=== PATIENT | male | born 1985 | race Caucasian/White ===

== ENCOUNTER 2018-05-22 00:41 | Emergency (ER) | payer OTHER ==
--- OUTSIDE RECORDS SUMMARY | 2018-05-22 00:43 | XMS REPORT | Clinical Summary ---
:1985 Author Organization [facility] Address [address] [place] [address] Care Team Providers Name Role Phone Asked, No Pcp Primary Care Provider Unavailable Allergies No Known Allergies Current Medications Prescription Sig. Disp. Refills Start Date End Date Status ibuprofen Take TID for 21 tablet 0 12/25/2017 Active (ADVIL,MOTRIN) 800 MG three days then tablet TID prn acetaminophen-codeine Take 1-2 tablets 15 tablet 0 12/25/2017 12/28/2017 (TYLENOL WITH CODEINE by mouth every 6 #3) 300-30 mg per (six) hours as tablet needed for moderate pain for up to 3 days. Active Problems Not on file Encounters Date Type Specialty Care Team Description 12/25/2017 Emergency Emergency Medicine Bernard Toney MD Contusion of left chest wall, initial encounter (Primary Dx) after 05/21/2017 Social History Tobacco Use Types Packs/Day Years Used Date Never Smoker Smokeless Tobacco: Never Used Alcohol Use Drinks/Week oz/Week Comments No Sex Assigned at Date Recorded Not on file Last Filed Vital Signs Vital Sign Reading Time Taken Blood Pressure 110/74 12/25/2017 6:07 PM CDT Pulse 80 12/25/2017 6:07 PM CDT Temperature 36.6 C (97.9 F) 12/25/2017 6:07 PM CDT Respiratory Rate 16 12/25/2017 6:07 PM CDT Oxygen Saturation 100% 12/25/2017 6:07 PM CDT Inhaled Oxygen Concentration - - Weight - - Height 180.3 cm (5' 11") 12/25/2017 3:55 PM CDT Body Mass Index - - Plan of Treatment Health Maintenance Due Date Last Done Comments INFLUENZA VACCINE 05/11/2018 Procedures Procedure Name Priority Date/Time Associated Diagnosis Comments XR CHEST 2 VW STAT 12/25/2017 5:05 PM Results for this CDT procedure are in the results section. after 05/21/2017 Results XR Chest 2 Vw (12/25/2017 5:05 PM) Narrative Performed At Examination: Chest 2 views [facility] CLINICAL HISTORY: Chest Pain, major traumatic injury COMPARISON: None. FINDINGS: The heart is normal in size. Mediastinum is within normal limits. Skeletal structures are unremarkable. IMPRESSION: There is hyperinflation with small nodular cystic areas in the apices of both lungs due to emphysema. The pleural surfaces are otherwise smooth. No pneumothorax. No active infiltrates. [id number] Procedure Note Hm Interface, Radiology Results Incoming - 12/25/2017 5:15 PM CDT Examination: Chest 2 views CLINICAL HISTORY: Chest Pain, major traumatic injury COMPARISON: None. FINDINGS: The heart is normal in size. Mediastinum is within normal limits. Skeletal structures are unremarkable. IMPRESSION: There is hyperinflation with small nodular cystic areas in the apices of both lungs due to emphysema. The pleural surfaces are otherwise smooth. No pneumothorax. No active infiltrates. [id number] Performing Organization Address City/State/Zipcode Phone Number [facility] [address] [place] [address] after 05/21/2017 Insurance Payer Benefit Plan / Group Subscriber ID Type Phone Address AETNA AETNA HMO,POS,EPO, MC/EC xxxxxxxxxx HMO [phone] [address]
[2018-05-22] MEDS ORDERED: TETANUS & DIPHTHERIA TOX,ADULT 0.5 ML VIAL ONE (00:57)
[2018-05-22] MEDS ORDERED: LIDOCAINE 1% MPF 5 ML VIAL ONE (01:13)
[2018-05-22] MEDS ORDERED: BUPIVACAINE 0.5% PF 10 ML VIAL ONE (01:13)
[2018-05-22] MEDS ORDERED: ONDANSETRON 4 MG/2 ML VIAL ONE (01:22)
[2018-05-22] MEDS ORDERED: MORPHINE 4 MG/ML SYR ONE (01:22)
[2018-05-22] MEDS ORDERED: DOXYCYCLINE 100 MG CAP PO ONE (01:38)
--- NOTE | 2018-05-22 01:40 | EDPHYS ---
Physician Documentation [facility] Name: Zohaib Talamantes Age: 32 yrs Sex: Male : 1985 Arrival Date: 05/22/2018 Time: 00:43 Bed 18 Private MD: ED Physician Darnell Moreno HPI: 05/22 00:48 This 32 yrs old Male presents to ER via Ambulatory with complaints of Stab cp Wound, Laceration To Hand. 00:48 The patient or guardian reports injury, a laceration, dirty, pain. cp 00:48 The complaints affect the dorsal side web space between right thumb and index finger. cp Context: resulted from slip and fall while holding knife on deck. Onset: The symptoms/episode began/occurred just prior to arrival. Associated signs and symptoms: Pertinent negatives: cyanosis distally, decreased sensation distally, numbness distally, tingling distally. Historical: - Allergies: 00:49 Toradol; bp - Home Meds: 00:49 None [Active]; bp - PMHx: 00:49 None; bp - Immunization history:: Adult Immunizations up to date, Last tetanus immunization: up to date < 5 years ago. - Social history:: Smoking status: Patient uses tobacco products, denies chronic smoking, but will smoke occasionally, Patient uses alcohol, occasionally. - Ebola Screening: : Patient negative for fever greater than or equal to 101.5 degrees Fahrenheit, and additional compatible Ebola Virus Disease symptoms Patient denies exposure to infectious person Patient denies travel to an Ebola-affected area in the 21 days before illness onset No symptoms or risks identified at this time. ROS: 00:55 Constitutional: Negative for body aches, chills, fever, poor PO intake. cp 00:55 Eyes: Negative for injury, pain, redness, and discharge. cp 00:55 Respiratory: Negative for cough, shortness of breath, wheezing. 00:55 Abdomen/GI: Negative for abdominal pain, nausea, vomiting, and diarrhea. 00:55 Skin: Positive for puncture, of the dorsum right hand web space between index finger and thumb. 00:55 Neuro: Negative for numbness, weakness. 00:55 All other systems are negative. Exam: 01:05 Constitutional: The patient appears in no acute distress, alert, awake, well developed, cp well nourished, uncomfortable. 01:05 Head/Face: Normocephalic, atraumatic. cp 01:05 Eyes: Periorbital structures: appear normal, Conjunctiva: normal, no exudate, no injection, Lids and lashes: appear normal, bilaterally. 01:05 ENT: External ear(s): are unremarkable, Nose: is normal, Mouth: Lips: moist, Oral mucosa: moist, Posterior pharynx: is normal, airway is patent. 01:05 Neck: ROM/movement: is normal, is supple, without pain, no range of motions limitations. 01:05 Chest/axilla: Exam negative for signs of trauma. 01:05 Cardiovascular: Rate: tachycardic. 01:05 Respiratory: the patient does not display signs of respiratory distress, Respirations: normal, no use of accessory muscles, no retractions, no splinting, no tachypnea. 01:05 Abdomen/GI: Exam negative for discomfort, distension, guarding. 01:05 Musculoskeletal/extremity: ROM: full active range of motion, in the right hand, Perfusion: the extremity is normally perfused throughout, Sensation intact. Tendon exam: specific tendon testing normal through active and passive range of motion 01:05 Skin: injury, laceration(s), the wound is approximately 1 cm(s), of the dorsal web space of right thumb and index finger, the second wound is approximately 1 cm(s), that can be described as contaminated, no foreign body, with mild bleeding. Vital Signs: 00:49 BP 128 / 93; Pulse 100; Resp 24; Temp 99.1; Pulse Ox 100% ; Weight 63.05 kg; Height 5 bp ft. 11 in. (180.34 cm); 01:50 BP 123 / 88; Pulse 92; Resp 16; Pulse Ox 98% ; Pain 0/10; ao 02:40 BP 124 / 87; Pulse 88; Resp 18; Pulse Ox 98% on R/A; Pain 0/10; ao 03:18 BP 123 / 82; Pulse 82; Resp 16; Pulse Ox 99% on R/A; ao 00:49 Body Mass Index 19.39 (63.05 kg, 180.34 cm) bp MDM: 00:46 Patient medically screened. cp 01:00 Differential diagnosis: open fracture, tendon injury, puncture wound. cp 01:38 Data reviewed: vital signs, nurses notes, radiologic studies, plain films. cp 01:38 Test interpretation: by ED physician or midlevel provider: plain radiologic studies. cp Counseling: I had a detailed discussion with the patient and/or guardian regarding: the historical points, exam findings, and any diagnostic results supporting the discharge/admit diagnosis, radiology results, the need for outpatient follow up, a family practitioner, to return to the emergency department if symptoms worsen or persist or if there are any questions or concerns that arise at home. Response to treatment: the patient's symptoms have markedly improved after treatment, and as a result, I will discharge patient. Special discussion: I discussed in detail with the patient the higher chance of wound infection based on his presenting history. 05/22 00:48 Order name: XRAY Hand RIGHT 3 View cp 05/22 00:48 Order name: Wound Care: soak in betadine and normal saline; Complete Time: 01:10 cp 05/22 00:52 Order name: IV; Complete Time: 01:28 cp 05/22 01:09 Order name: Prolene, Sutures; Complete Time: :28 cp 05/22 01:09 Order name: Dressing - Wound; Complete Time: 01:10 cp 05/22 01:09 Order name: Gloves, Sterile; Complete Time: 01:10 cp 05/22 01:09 Order name: Setup Suture Tray; Complete Time: 01:10 cp 05/22 01:36 Order name: Wound dressing; Complete Time: 02:18 cp 05/22 01:37 Order name: Splint: aluminum volar splint; Complete Time: 02:18 cp Administered Medications: 01:10 Drug: Zofran 4 mg Route: IVP; Site: left antecubital; ao 01:45 Follow up: Response: No adverse reaction ao 01:12 Not Given (Patient Refused): Tetanus-Diphtheria Toxoid Adult 0.5 ml IM once ao 01:27 Drug: Lidocaine (1 %) 5 mg {Note: By Say Lira, PA.} Route: Infiltration; ao 01:45 Follow up: Response: No adverse reaction ao 01:27 Drug: Marcaine (0.5 %) 5 ml {Note: By Say Lira, PA.} Volume: 10 ml; Route: ao Infiltration; :45 Follow up: Response: No adverse reaction ao 01:28 Drug: morphine 2 mg Route: IVP; Site: left antecubital; ao 01:45 Follow up: Response: No adverse reaction ao 01:44 Drug: Doxycycline 100 mg Route: PO; ao 01:45 Follow up: Response: No adverse reaction ao Disposition: 05/22/18 01:39 Discharged to Home. Impression: Laceration without foreign body of right hand - Dorsal web space of thumb and index finger. - Condition is Stable. - Discharge Instructions: Laceration Care, Adult. - Prescriptions for Doxycycline Hyclate 100 mg Oral Tablet - take 1 tablet by ORAL route every 12 hours; 20 tablet. Tramadol 50 mg Oral Tablet - take 1 tablet by ORAL route every 8 hours as needed; 12 tablet. - Medication Reconciliation Form, Thank You Letter, Antibiotic Education, Prescription Opioid Use form. - Follow up: Private Physician; When: 48 Hours; Reason: Wound Recheck. - Problem is new. - Symptoms have improved. Addendum: 05/23/2018 04:44 Co-signature as Attending Physician, Darnell Moreno MD. g s Signatures: Dispatcher [employer] EDMS Marquez Lira PA PA cp Ortiz, Alex, RN RN Darnell John MD MD gs Peltier, Brian, RN RN bp Corrections: (The following items were deleted from the chart) 08 01:36 01:36 Splint ordered. cp cp 03:20 01:39 05/22/2018 01:39 Discharged to Home. Impression: Laceration without foreign body ao of right hand - Dorsal web space of thumb and index finger. Condition is Stable. Forms are Medication Reconciliation Form, Thank You Letter, Antibiotic Education, Prescription Opioid Use. Follow up: Private Physician; When: 48 Hours; Reason: Wound Recheck. Problem is new. Symptoms have improved. cp
--- NOTE | 2018-05-22 01:40 | ER ---
Nurse's Notes [facility] Name: Zohaib Talamantes Age: 32 yrs Sex: Male : 1985 Arrival Date: 05/22/2018 Time: 00:43 Bed 18 Private MD: Diagnosis: Laceration without foreign body of right hand-Dorsal web space of thumb and index finger Presentation: 05/22 00:48 Presenting complaint: Patient states: I WAS ON THE DOCK AND FELL HOLDING MY KNIFE AND bp CUT MY HAND. Transition of care: patient was not received from another setting of care. Onset of symptoms was May 22, 2018 at 00:00. Risk Assessment: Do you want to hurt yourself or someone else? Patient reports no desire to harm self or others. Initial Sepsis Screen: Does the patient meet any 2 criteria? No. Patient's initial sepsis screen is negative. Does the patient have a suspected source of infection? No. Patient's initial sepsis screen is negative. Care prior to arrival: None. 00:48 Method Of Arrival: Ambulatory bp 00:48 Acuity: TOREY 3 bp Triage Assessment: 00:49 General: Appears distressed, uncomfortable, slender, Behavior is cooperative, bp appropriate for age, anxious. Pain: Complains of pain in Right first web space. Historical: - Allergies: 00:49 Toradol; bp - Home Meds: 00:49 None [Active]; bp - PMHx: 00:49 None; bp - Immunization history:: Adult Immunizations up to date, Last tetanus immunization: up to date < 5 years ago. - Social history:: Smoking status: Patient uses tobacco products, denies chronic smoking, but will smoke occasionally, Patient uses alcohol, occasionally. - Ebola Screening: : Patient negative for fever greater than or equal to 101.5 degrees Fahrenheit, and additional compatible Ebola Virus Disease symptoms Patient denies exposure to infectious person Patient denies travel to an Ebola-affected area in the 21 days before illness onset No symptoms or risks identified at this time. Screenin:51 Abuse screen: Denies threats or abuse. Denies injuries from another. Nutritional bp screening: No deficits noted. Tuberculosis screening: No symptoms or risk factors identified. Fall Risk None identified. Assessment: 00:51 General: Appears distressed, uncomfortable, slender, Behavior is cooperative, bp appropriate for age, anxious. Pain: Complains of pain in Right first web space. Neuro: Level of Consciousness is awake, alert, obeys commands, Oriented to person, place, time, situation, Appropriate for age. Cardiovascular: No deficits noted. Respiratory: Airway is patent Respiratory effort is even, unlabored, Respiratory pattern is regular, symmetrical. GI: No signs and/or symptoms were reported involving the gastrointestinal system. : No signs and/or symptoms were reported regarding the genitourinary system. EENT: No deficits noted. Derm: No signs and/or symptoms reported regarding the dermatologic system. Musculoskeletal: Circulation, motion, and sensation intact. Range of motion: intact in all extremities. Injury Description: Laceration sustained to Right first web space is clean, full thickness, 2.6 to 7.5 cm long, bleeding moderately. 01:40 Reassessment: Patient appears in no apparent distress at this time. Patient and/or ao family updated on plan of care and expected duration. Pain level reassessed. Patient is alert, oriented x 3, equal unlabored respirations, skin warm/dry/pink. Clean incision with Hibiclens and NS. Patient asked for pain medication. Say Lira was notified. 02:21 Reassessment: Patient appears in no apparent distress at this time. Patient and/or ao family updated on plan of care and expected duration. Pain level reassessed. Patient is alert, oriented x 3, equal unlabored respirations, skin warm/dry/pink. Patient to be discharge. Medicated with Morphine and patient had some alcohol on board. 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 03:18 Reassessment: DC instructions given to mother and patient. Mother agree to drive ao patient home. Patient agree with the POC and to follow up with PCP. No questions at this time. Vital Signs: 00:49 BP 128 / 93; Pulse 100; Resp 24; Temp 99.1; Pulse Ox 100% ; Weight 63.05 kg; Height 5 bp ft. 11 in. (180.34 cm); 01:50 BP 123 / 88; Pulse 92; Resp 16; Pulse Ox 98% ; Pain 0/10; ao 02:40 BP 124 / 87; Pulse 88; Resp 18; Pulse Ox 98% on R/A; Pain 0/10; ao 03:18 BP 123 / 82; Pulse 82; Resp 16; Pulse Ox 99% on R/A; ao 00:49 Body Mass Index 19.39 (63.05 kg, 180.34 cm) bp ED Course: 00:43 Patient arrived in ED. es 00:44 Marquez Lira PA is PHCP. cp 00:44 Darnell Moreno MD is Attending Physician. cp 00:48 Triage completed. bp 00:49 Arm band placed on. bp 00:50 Mickey Oliveira, RN is Primary Nurse. ao 00:51 Patient has correct armband on for positive identification. Bed in low position. Call bp light in reach. Side rails up X2. 01:04 XRAY Hand RIGHT 3 View In Process Unspecified. EDMS 03:20 No provider procedures requiring assistance completed. IV discontinued, intact, ao bleeding controlled, No redness/swelling at site. Pressure dressing applied. Administered Medications: 01:10 Drug: Zofran 4 mg Route: IVP; Site: left antecubital; ao 01:45 Follow up: Response: No adverse reaction ao 01:12 Not Given (Patient Refused): Tetanus-Diphtheria Toxoid Adult 0.5 ml IM once ao 01:27 Drug: Lidocaine (1 %) 5 mg {Note: By LÁZARO Mccormick.} Route: Infiltration; ao 01:45 Follow up: Response: No adverse reaction ao 01:27 Drug: Marcaine (0.5 %) 5 ml {Note: By LÁZARO Mccormick.} Volume: 10 ml; Route: ao Infiltration; 01:45 Follow up: Response: No adverse reaction ao 01:28 Drug: morphine 2 mg Route: IVP; Site: left antecubital; ao 01:45 Follow up: Response: No adverse reaction ao 01:44 Drug: Doxycycline 100 mg Route: PO; ao 01:45 Follow up: Response: No adverse reaction ao Outcome: 01:39 Discharge ordered by . cp 03:20 Discharged to home ambulatory, with family. 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 Demonstrated understanding of instructions, follow-up care, medications, Prescriptions given X 2. 03:20 Patient left the ED. ao Signatures: Dispatcher [employer] EDKY Dora Castillo Corey, PA PA cp Ortiz, Alex, RN RN ao Sun, Clint, RN RN bp Corrections: (The following items were deleted from the chart) 03:20 01:50 BP 124 / 87; Pulse 88bpm; Resp 18bpm; Pulse Ox 98% RA; Pain 0/10; ao ao
--- NOTE | 2018-05-22 08:38 | RAD REPORT ---
EXAM DESCRIPTION: RAD - Hand Right 3 View - 05/22/2018 1:04 am CLINICAL HISTORY: Fall, laceration between the first and second finger COMPARISON: None. FINDINGS: No fracture is identified. There is no dislocation or periosteal reaction noted. No forei gn body or other soft tissue abnormality. Curvature of the fourth and fifth metacarpals could be the sequela of a remote fracture and remodeled. IMPRESSION: No foreign body. No acute bone finding.
== END 2018-05-22 03:20 | disposition home or self-care (01) ==
LOC: ER 00:41
DX: S61.411A Laceration without foreign body of right hand, initial encounter (principal); W26.0XXA Contact with knife, initial encounter; Y93.89 Activity, other specified; Y92.814 Boat as the place of occurrence of the external cause; Z88.5 Allergy status to narcotic agent; Z72.0 Tobacco use
CPT/HCPCS: 90714; 96374; 96375; 99283; J2405

== ENCOUNTER 2018-07-10 18:09 | Emergency (ER) | payer OTHER ==
--- OUTSIDE RECORDS SUMMARY | 2018-07-10 18:12 | XMS REPORT | Clinical Summary ---
:1985 Author Organization [facility] Address [address] [place] [address] Care Team Providers Name Role Phone Asked, [...] chest wall, initial encounter (Primary Dx) after 07/09/2017 Social History Tobacco Use Types Packs/Day Years [...] procedure are in the results section. after 07/09/2017 Results XR Chest 2 Vw (12/25/2017 5:05 [...] otherwise smooth. No pneumothorax. No active infiltrates. [id number] Procedure Note Hm Interface, Radiology Results Incoming [...] otherwise smooth. No pneumothorax. No active infiltrates. [id number] Performing Organization Address City/State/Zipcode Phone Number [facility] [address] [place] [address] after 07/09/2017 Insurance Payer Benefit Plan / Group Subscriber ID Type Phone Address AETNA AETNA HMO,POS,EPO, MC/EC xxxxxxxxxx HMO [phone] [address]
--- NOTE | 2018-07-10 19:12 | RAD REPORT ---
EXAM DESCRIPTION: CT - C Spine Wo Con - 07/10/2018 7:01 pm CLINICAL HISTORY: after lifting washing machine;Pain Neck injury COMPARISON: <Comparisons> FINDINGS: The cervical vertebral body heights and disc spaces are maintained. No evidence of acute cervical spine fracture or subluxation. Prevertebral soft tissues are normal in thickness. Emphysematous changes in the upper lung tong. IMPRESSION: Negative for acute cervical spine abnormality. All CT scans are performed using dose optimization technique as appropriate and may include automated exposure control or mA/KV adjustment according to patient size.
[2018-07-10] MEDS ORDERED: IBUPROFEN 400 MG TAB ONE (19:15)
--- NOTE | 2018-07-10 19:34 | EDPHYS ---
Physician Documentation [facility] Name: Zohaib Talamantes Age: 32 yrs Sex: Male : 1985 Arrival Date: 07/10/2018 Time: 18:12 Bed 5 Private MD: None, None ED Physician Darnell Moreno HPI: 07/10 18:35 This 32 yrs old Male presents to ER via Ambulatory with complaints of Stiff cp Neck. 18:35 The patient or guardian complains of decreased range of motion, an injury, pain, that cp is acute, tenderness. The symptoms are located on the left posterior lower neck. Onset: The symptoms/episode began/occurred suddenly, today. Context: The neck injury/problem resulted from attempting to lift washing machine. Associated signs and symptoms: Pertinent negatives: fever, numbness, tingling, weakness. Historical: - Allergies: 18:20 Toradol; sg - Home Meds: 18:20 None [Active]; sg - PMHx: 18:20 None; sg - PSHx: 18:20 None; sg - Immunization history:: Adult Immunizations not up to date. - Social history:: Smoking status: Patient/guardian denies using tobacco. - Ebola Screening: : Patient negative for fever greater than or equal to 101.5 degrees Fahrenheit, and additional compatible Ebola Virus Disease symptoms Patient denies exposure to infectious person Patient denies travel to an Ebola-affected area in the 21 days before illness onset No symptoms or risks identified at this time. ROS: 18:45 Constitutional: Negative for body aches, chills, fever, poor PO intake. cp 18:45 Eyes: Negative for injury, pain, redness, and discharge. cp 18:45 ENT: Negative for drainage from ear(s), ear pain, sore throat, difficulty swallowing, difficulty handling secretions. 18:45 Neck: Positive for pain with movement, pain at rest, stiffness, tenderness. 18:45 Cardiovascular: Negative for chest pain, edema, palpitations. 18:45 Respiratory: Negative for cough, shortness of breath, wheezing. 18:45 Abdomen/GI: Negative for abdominal pain, nausea, vomiting, and diarrhea, black/tarry stool, rectal bleeding. 18:45 Back: Negative for decreased range of motion, pain at rest, pain with movement. 18:45 : Negative for urinary symptoms. 18:45 Skin: Negative for cellulitis, rash. 18:45 Neuro: Negative for altered mental status, headache, numbness, tingling, weakness. 18:45 All other systems are negative. Exam: 18:50 Constitutional: The patient appears in no acute distress, alert, awake, non-toxic, well cp developed, well nourished, uncomfortable. 18:50 Head/Face: Normocephalic, atraumatic. cp 18:50 Eyes: Periorbital structures: appear normal, Pupils: equal, round, and reactive to light and accomodation, Extraocular movements: intact throughout, Conjunctiva: normal, no exudate, no injection, Sclera: no appreciated abnormality, Lids and lashes: appear normal, bilaterally. 18:50 ENT: External ear(s): are unremarkable, Ear canal(s): are normal, clear, TM's: bulging, is not appreciated, bilaterally, dullness, bilaterally, erythema, is not appreciated, bilaterally, Nose: is normal, Mouth: Lips: moist, Oral mucosa: moist, Posterior pharynx: is normal, airway is patent, no erythema, no exudate, Voice: is normal. 18:50 Neck: External neck: tenderness, that is moderate, of the left mid cervical area, left trapezius and lower cervical area, C-spine: C-collar placed in ED, crepitus, is not appreciated, ROM/movement: pain, that is moderate, with any movement, limited range of motion, that is moderate, in any direction. 18:50 Chest/axilla: Inspection: normal, Palpation: is normal, no crepitus, no tenderness. 18:50 Cardiovascular: Rate: normal, Rhythm: regular, Pulses: Pulses are 2+ in right radial artery and left radial artery. 18:50 Respiratory: the patient does not display signs of respiratory distress, Respirations: normal, no use of accessory muscles, no retractions, no splinting, no tachypnea, labored breathing, is not present, Breath sounds: are clear throughout, no decreased breath sounds, no stridor, no wheezing. 18:50 Abdomen/GI: Inspection: abdomen appears normal, Palpation: abdomen is soft and non-tender, in all quadrants. 18:50 Back: pain, is absent, ROM is normal. 18:50 Musculoskeletal/extremity: Exam is negative for decreased range of motion, edema. 18:50 Skin: cellulitis, is not appreciated, no rash present. 18:50 Neuro: Orientation: to person, place \T\ time. Mentation: lucid, able to follow commands, Cerebellar function: is grossly normal, Motor: moves all fours, strength is normal, Sensation: no obvious gross deficits, Deep tendon reflexes are 2+ (normal) in the right tricep, right bicep, right brachioradialis, left bicep, left tricep and left brachioradialis. Vital Signs: 18:30 BP 133 / 80; Pulse 92; Resp 17; Temp 97.7; Pulse Ox 99% on R/A; sg 18:50 BP 131 / 78; Pulse 89; Resp 16; Pulse Ox 97% on R/A; aj MDM: 18:25 Patient medically screened. cp 19:00 Differential diagnosis: C-Spine Fracture Cervical Disc Herniation Cervical Raiculopathy cp cervical strain, Spinal Cord Compression Spondylolisthesis subluxation, torticollis. 19:33 Data reviewed: vital signs, nurses notes, radiologic studies, CT scan. cp 19:33 Counseling: I had a detailed discussion with the patient and/or guardian regarding: the cp historical points, exam findings, and any diagnostic results supporting the discharge/admit diagnosis, radiology results, the need for outpatient follow up, a family practitioner, to return to the emergency department if symptoms worsen or persist or if there are any questions or concerns that arise at home. Response to treatment: the patient's symptoms have mildly improved after treatment, and as a result, I will discharge patient. 07/10 18:33 Order name: CT C Spine; Complete Time: 19:21 cp 07/10 19:21 Interpretation: Report reviewed. cp Administered Medications: 19:10 Drug: Motrin 800 mg Route: PO; aj 19:54 Follow up: Response: No adverse reaction aj Disposition: 07/10/18 19:33 Discharged to Home. Impression: Strain of muscle, fascia and tendon at neck level. - Condition is Stable. - Discharge Instructions: Muscle Strain, Heat Therapy. - Prescriptions for Anaprox DS 550 mg Oral Tablet - take 1 tablet by ORAL route every 12 hours As needed; 20 tablet. Baclofen 10 mg Oral Tablet - take 1 tablet by ORAL route 3 times per day no driving while taking medication; 20 tablet. Tramadol 50 mg Oral Tablet - take 1 tablet by ORAL route every 8 hours as needed; 15 tablet. - Medication Reconciliation Form, Thank You Letter, Antibiotic Education, Prescription Opioid Use form. - Follow up: Private Physician; When: 2 - 3 days; Reason: Recheck today's complaints. - Problem is new. - Symptoms have improved. Addendum: 07/18/2018 16:39 Co-signature as Attending Physician, Darnell Moreno MD. g s Signatures: Dispatcher [employer] EDMS Lionel Medina RN Lucinda Sultana RN RN Marquez Lucero PA PA cp Darnell Moreno MD MD Corrections: (The following items were deleted from the chart) 07/10 19:55 19:33 07/10/2018 19:33 Discharged to Home. Impression: Strain of muscle, fascia and aj tendon at neck level. Condition is Stable. Forms are Medication Reconciliation Form, Thank You Letter, Antibiotic Education, Prescription Opioid Use. Follow up: Private Physician; When: 2 - 3 days; Reason: Recheck today's complaints. Problem is new. Symptoms have improved. cp
--- NOTE | 2018-07-10 19:34 | ER ---
Nurse's Notes [facility] Name: Zohaib Talamantes Age: 32 yrs Sex: Male : 1985 Arrival Date: 07/10/2018 Time: 18:12 Bed 5 Private MD: None, None Diagnosis: Strain of muscle, fascia and tendon at neck level Presentation: 07/10 18:22 Presenting complaint: Patient states: My neck has just been really painful and stiff sg today, it started early today when i was trying to lift the washing machine, we have been moving furniture because we are moving out. Transition of care: patient was not received from another setting of care. Onset of symptoms was July 10, 2018. Risk Assessment: Do you want to hurt yourself or someone else? Patient reports no desire to harm self or others. Care prior to arrival: None. 18:22 Method Of Arrival: Ambulatory sg 18:22 Acuity: TOREY 4 sg 19:55 Initial Sepsis Screen: Does the patient meet any 2 criteria? No. Patient's initial aj sepsis screen is negative. Does the patient have a suspected source of infection? No. Patient's initial sepsis screen is negative. Historical: - Allergies: 18:20 Toradol; sg - Home Meds: 18:20 None [Active]; sg - PMHx: 18:20 None; sg - PSHx: 18:20 None; sg - Immunization history:: Adult Immunizations not up to date. - Social history:: Smoking status: Patient/guardian denies using tobacco. - Ebola Screening: : Patient negative for fever greater than or equal to 101.5 degrees Fahrenheit, and additional compatible Ebola Virus Disease symptoms Patient denies exposure to infectious person Patient denies travel to an Ebola-affected area in the 21 days before illness onset No symptoms or risks identified at this time. Screenin:50 Abuse screen: Denies threats or abuse. Denies injuries from another. Nutritional aj screening: No deficits noted. Tuberculosis screening: No symptoms or risk factors identified. Fall Risk None identified. Assessment: 18:50 General: Appears in no apparent distress. comfortable, Behavior is calm, cooperative, aj appropriate for age. 18:50 Pain: Complains of pain in back of neck and posterior chest. Neuro: Level of aj Consciousness is awake, alert, obeys commands, Oriented to person, place, time, situation, Appropriate for age. Respiratory: Airway is patent Respiratory effort is even, unlabored, Respiratory pattern is regular, symmetrical. Derm: Skin is intact, is healthy with good turgor, Skin is pink, warm \T\ dry. normal. Musculoskeletal: Reports pain in back of neck and posterior chest. Vital Signs: 18:30 BP 133 / 80; Pulse 92; Resp 17; Temp 97.7; Pulse Ox 99% on R/A; sg 18:50 BP 131 / 78; Pulse 89; Resp 16; Pulse Ox 97% on R/A; aj ED Course: 18:12 Patient arrived in ED. mr 18:12 None, None is Private Physician. mr 18:20 Arm band placed on. sg 18:22 Triage completed. sg 18:25 Marquez Lira PA is PHCP. cp 18:25 Darnell Moreno MD is Attending Physician. cp 18:40 Lucinda Lee, RN is Primary Nurse. aj 18:50 Patient has correct armband on for positive identification. aj 18:50 No provider procedures requiring assistance completed. Patient did not have IV access aj during this emergency room visit. 19:01 CT C Spine In Process Unspecified. EDMS Administered Medications: 19:10 Drug: Motrin 800 mg Route: PO; aj 19:54 Follow up: Response: No adverse reaction aj Outcome: 18:50 Discharged to home ambulatory. aj 18:50 Condition: good 18:50 Discharge instructions given to patient, Instructed on discharge instructions, follow up and referral plans. medication usage, Demonstrated understanding of instructions, follow-up care, medications, Prescriptions given X 3. 19:33 Discharge ordered by MD. cp 19:55 Patient left the ED. aj Signatures: Dispatcher [employer] EDMS Lionel Medina RN RN sg Myers, Amanda RN RN Nicolette Hwang mr Marquez Lira PA PA cp Corrections: (The following items were deleted from the chart) 18:29 18:22 Presenting complaint: Patient states: My neck has just been really painful and sg stiff today, it started yesterday sometime sg 18:29 18:22 Acuity: TOREY 3 sg sg
== END 2018-07-10 19:55 | disposition home or self-care (01) ==
LOC: ER 18:09
DX: S16.1XXA Strain of muscle, fascia and tendon at neck level, initial encounter (principal); X50.0XXA Overexertion from strenuous movement or load, initial encounter; Y93.89 Activity, other specified; Y92.9 Unspecified place or not applicable; Z88.5 Allergy status to narcotic agent
CPT/HCPCS: 72125; 99283

== ENCOUNTER 2018-07-18 14:01 | Emergency (ER) | payer OTHER ==
--- OUTSIDE RECORDS SUMMARY | 2018-07-18 14:03 | XMS REPORT | Clinical Summary ---
:1985 Author Organization [facility] Address [address] [place] [address] Care Team Providers Name Role Phone Asked, [...] chest wall, initial encounter (Primary Dx) after 07/17/2017 Social History Tobacco Use Types Packs/Day Years [...] procedure are in the results section. after 07/17/2017 Results XR Chest 2 Vw (12/25/2017 5:05 [...] otherwise smooth. No pneumothorax. No active infiltrates. [id number] Procedure Note Hm Interface, Radiology Results Incoming [...] otherwise smooth. No pneumothorax. No active infiltrates. [id number] Performing Organization Address City/State/Zipcode Phone Number [facility] [address] [place] [address] after 07/17/2017 Insurance Payer Benefit Plan / Group Subscriber ID Type Phone Address AETNA AETNA HMO,POS,EPO, MC/EC xxxxxxxxxx HMO [phone] [address]
--- NOTE | 2018-07-18 15:06 | ER ---
Nurse's Notes [facility] Name: Zohaib Talamantes Age: 32 yrs Sex: Male : 1985 Arrival Date: 07/18/2018 Time: 14:05 Bed 27 Private MD: None, None Diagnosis: Sprain of ligaments of cervical spine Presentation: 07/18 14:08 Presenting complaint: Patient states: "I was seen here about 2 weeks ago and I am still aa5 having the neck pain". Pt states "I was lifting a washer and I felt something pull in my neck". Pt states "I am taking tramadol and it works pretty good but I can't move my head too far so I can't work". Pt states "I have a doctor's appointment for Wednesday". Transition of care: patient was not received from another setting of care. Onset of symptoms was June 2018. Risk Assessment: Do you want to hurt yourself or someone else? Patient reports no desire to harm self or others. Initial Sepsis Screen: Does the patient meet any 2 criteria? No. Patient's initial sepsis screen is negative. Does the patient have a suspected source of infection? No. Patient's initial sepsis screen is negative. Care prior to arrival: None. 14:08 Method Of Arrival: Ambulatory aa5 14:08 Acuity: TOREY 4 aa5 Historical: - Allergies: 14:11 Toradol; aa5 - PMHx: 14:11 None; aa5 - PSHx: 14:11 None; aa5 - Immunization history:: Adult Immunizations up to date. - Social history:: Smoking status: Patient uses tobacco products, smokes one-half pack cigarettes per day. - Ebola Screening: : No symptoms or risks identified at this time. Screenin:33 Abuse screen: Denies threats or abuse. Nutritional screening: No deficits noted. tl3 Tuberculosis screening: No symptoms or risk factors identified. Fall Risk None identified. Assessment: 14:33 General: Appears uncomfortable, slender, well groomed, well developed, well nourished, tl3 Behavior is calm, cooperative, appropriate for age. Pain: Complains of pain in neck. Neuro: Level of Consciousness is awake, alert, obeys commands, Oriented to person, place, time, situation, Appropriate for age. Cardiovascular: Patient's skin is warm and dry. Respiratory: Airway is patent Respiratory effort is even, unlabored, Respiratory pattern is regular, symmetrical. GI: No signs and/or symptoms were reported involving the gastrointestinal system. : No signs and/or symptoms were reported regarding the genitourinary system. EENT: No signs and/or symptoms were reported regarding the EENT system. Derm: No signs and/or symptoms reported regarding the dermatologic system. Musculoskeletal: Reports pain in neck pain. 15:25 Reassessment: Patient appears in no apparent distress at this time. No changes from tl3 previously documented assessment. Patient and/or family updated on plan of care and expected duration. Pain level reassessed. Patient is alert, oriented x 3, equal unlabored respirations, skin warm/dry/pink. Vital Signs: 14:11 BP 117 / 79; Pulse 79; Resp 16 S; Temp 98.5(O); Pulse Ox 99% on R/A; Weight 65.77 kg aa5 (R); Height 5 ft. 11 in. (180.34 cm) (R); Pain 9/10; 15:25 BP 120 / 80; Pulse 58; Resp 18; Pulse Ox 100% on R/A; tl3 14:11 Body Mass Index 20.22 (65.77 kg, 180.34 cm) aa5 ED Course: 14:05 Patient arrived in ED. mr 14:05 None, None is Private Physician. mr 14:10 Triage completed. aa5 14:10 Arm band placed on. aa5 14:14 Darnell Moreno MD is Attending Physician. 14:25 Janine Bermudez RN is Primary Nurse. tl3 14:33 Patient has correct armband on for positive identification. Bed in low position. tl3 14:33 No provider procedures requiring assistance completed. Patient did not have IV access tl3 during this emergency room visit. Administered Medications: No medications were administered Outcome: 15:05 Discharge ordered by . 15:25 Discharged to home ambulatory. tl3 15:25 Condition: good 15:25 Discharge instructions given to patient, Instructed on discharge instructions, follow up and referral plans. medication usage, Demonstrated understanding of instructions, follow-up care, medications. 15:26 Patient left the ED. tl3 Signatures: Nicolette Lopez mr ThakkarMontejoJade seo RN RN aa5 Darnell Moreno MD MD gs Lowrey, Tammy, RN RN tl3 Corrections: (The following items were deleted from the chart) 14:11 14:08 Presenting complaint: Patient states: "I was seen here about 2 weeks ago and I am aa5 still having the neck pain". Pt states "I was lifting a washer and I felt something pull in my neck". Pt states "I am taking tramadol and it works pretty good but I can't move my head too far". aa5
--- NOTE | 2018-07-18 15:06 | EDPHYS ---
Physician Documentation [facility] Name: Zohaib Talamantes Age: 32 yrs Sex: Male : 1985 Arrival Date: 07/18/2018 Time: 14:05 Bed 27 Private MD: None, None ED Physician Darnell Moreno HPI: 07/18 15:01 This 32 yrs old Male presents to ER via Ambulatory with complaints of Neck gs Problem. 15:01 The patient or guardian complains of an injury. Onset: The symptoms/episode gs began/occurred 1 week(s) ago. Associated signs and symptoms: Pertinent negatives: bladder incontinence, bowel incontinence, nausea, numbness, tingling, vomiting. Modifying factors: the symptoms are aggravated by movement. Severity of symptoms: At their worst the symptoms were moderate, in the emergency department the symptoms are unchanged. Historical: - Allergies: 14:11 Toradol; aa5 - PMHx: 14:11 None; aa5 - PSHx: 14:11 None; aa5 - Immunization history:: Adult Immunizations up to date. - Social history:: Smoking status: Patient uses tobacco products, smokes one-half pack cigarettes per day. - Ebola Screening: : No symptoms or risks identified at this time. ROS: 15:01 All other systems are negative. gs Exam: 15:01 Head/Face: Normocephalic, atraumatic. Eyes: Pupils equal round and reactive to light, gs extra-ocular motions intact. Lids and lashes normal. Conjunctiva and sclera are non-icteric and not injected. Cornea within normal limits. Periorbital areas with no swelling, redness, or edema. ENT: Nares patent. No nasal discharge, no septal abnormalities noted. Tympanic membranes are normal and external auditory canals are clear. Oropharynx with no redness, swelling, or masses, exudates, or evidence of obstruction, uvula midline. Mucous membranes moist. Chest/axilla: Normal chest wall appearance and motion. Nontender with no deformity. No lesions are appreciated. Cardiovascular: Regular rate and rhythm with a normal S1 and S2. No gallops, murmurs, or rubs. Normal PMI, no JVD. No pulse deficits. Respiratory: Lungs have equal breath sounds bilaterally, clear to auscultation and percussion. No rales, rhonchi or wheezes noted. No increased work of breathing, no retractions or nasal flaring. Abdomen/GI: Soft, non-tender, with normal bowel sounds. No distension or tympany. No guarding or rebound. No evidence of tenderness throughout. Back: No spinal tenderness. No costovertebral tenderness. Full range of motion. Skin: Warm, dry with normal turgor. Normal color with no rashes, no lesions, and no evidence of cellulitis. MS/ Extremity: Pulses equal, no cyanosis. Neurovascular intact. Full, normal range of motion. Neuro: Awake and alert, GCS 15, oriented to person, place, time, and situation. Cranial nerves II-XII grossly intact. Motor strength 5/5 in all extremities. Sensory grossly intact. Cerebellar exam normal. Normal gait. 15:01 Constitutional: The patient appears alert, awake. 15:01 Neck: External neck: tenderness, that is mild, of the left trapezius and right trapezius, ROM/movement: pain, that is mild. Vital Signs: 14:11 BP 117 / 79; Pulse 79; Resp 16 S; Temp 98.5(O); Pulse Ox 99% on R/A; Weight 65.77 kg aa5 (R); Height 5 ft. 11 in. (180.34 cm) (R); Pain 9/10; 15:25 BP 120 / 80; Pulse 58; Resp 18; Pulse Ox 100% on R/A; tl3 14:11 Body Mass Index 20.22 (65.77 kg, 180.34 cm) aa5 MDM: 14:37 Patient medically screened. gs 15:01 Differential diagnosis: Cervical Discogenic Pain cervical strain, Whiplash Injury. Data reviewed: vital signs, nurses notes. Response to treatment: There is no appreciated change of the patient's symptoms at this time, and as a result, I will discharge patient. Administered Medications: No medications were administered Disposition: 07/18/18 15:05 Discharged to Home. Impression: Sprain of ligaments of cervical spine. - Condition is Stable. - Discharge Instructions: Cervical Sprain. - Prescriptions for Tramadol 50 mg Oral Tablet - take 1 tablet by ORAL route every 8 hours as needed; 12 tablet. - Medication Reconciliation Form, Thank You Letter, Antibiotic Education, Prescription Opioid Use form. - Follow up: Private Physician; When: 2 - 3 days; Reason: Re-evaluation by your physician. Signatures: Jade Montejo, RN RN aa5 Darnell Moreno MD MD gs Janine Bermudez RN RN tl3 Corrections: (The following items were deleted from the chart) 15:26 15:05 07/18/2018 15:05 Discharged to Home. Impression: Sprain of ligaments of cervical tl3 spine. Condition is Stable. Forms are Medication Reconciliation Form, Thank You Letter, Antibiotic Education, Prescription Opioid Use. Follow up: Private Physician; When: 2 - 3 days; Reason: Re-evaluation by your physician. gs
== END 2018-07-18 15:26 | disposition home or self-care (01) ==
LOC: ER 14:01
DX: S13.4XXA Sprain of ligaments of cervical spine, initial encounter (principal); X58.XXXA Exposure to other specified factors, initial encounter; Y93.9 Activity, unspecified; Y92.9 Unspecified place or not applicable; Z88.5 Allergy status to narcotic agent; F17.210 Nicotine dependence, cigarettes, uncomplicated
CPT/HCPCS: 99281

== ENCOUNTER 2018-11-29 20:48 | Emergency (ER) | payer OTHER, SELFPAY ==
--- OUTSIDE RECORDS SUMMARY | 2018-11-29 20:51 | XMS REPORT | Clinical Summary ---
:1985 Author Organization [facility] [employer] Address [address] [place] [address] Care Team Providers Name Role Phone Asked, No Pcp Primary Care Provider Unavailable Allergies No Known Allergies Medications Medication Sig Dispensed Refills Start Date End Date Status ibuprofen Take TID for 21 tablet 0 12/25/2017 Active (ADVIL,MOTRIN) 800 three days then MG tablet TID prn acetaminophen-codein Take 1-2 tablets 15 tablet 0 12/25/2017 12/28/2017 e (TYLENOL WITH by mouth every 6 CODEINE #3) 300-30 (six) hours as mg per tablet needed for moderate pain for up to 3 days. Active Problems Not on file Encounters Date Type Specialty Care Team Description 12/25/2017 Emergency Emergency Medicine Bernard Toney MD Contusion of left chest wall, initial encounter (Primary Dx) after 11/28/2017 Social History Tobacco Use Types Packs/Day Years Used Date Never Smoker Smokeless Tobacco: Never Used Alcohol Use Drinks/Week oz/Week Comments No Sex Assigned at Date Recorded Not on file Job Start Date Occupation Industry Not on file Not on file Not on file Travel History Travel Start Travel End No recent travel history available. Last Filed Vital Signs Vital Sign Reading [...] procedure are in the results section. after 11/28/2017 Results XR Chest 2 Vw (12/25/2017 5:05 PM CDT) Narrative Performed At Examination: Chest 2 views [facility] CLINICAL HISTORY: Chest Pain, major traumatic injury COMPARISON: None. FINDINGS: The heart is normal in size. Mediastinum is within normal limits. Skeletal structures are unremarkable. IMPRESSION: There is hyperinflation with small nodular cystic areas in the apices of both lungs due to emphysema. The pleural surfaces are otherwise smooth. No pneumothorax. No active infiltrates. [id number] Procedure Note Interface, Radiology Results Incoming - 12/25/2017 5:15 [...] otherwise smooth. No pneumothorax. No active infiltrates. [id number] Performing Organization Address City/State/Zipcode Phone Number [facility] [phone] [place] [address] after 11/28/2017 Insurance Payer Benefit Plan / Group Subscriber ID Type Phone Address AETNA AETNA HMO,POS,EPO, MC/EC xxxxxxxxxx HMO Advance Directives Patient has advance care planning documents on file. For more information, please contact:[facility] [id number] [place] [address]
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
--- NOTE | 2018-11-29 21:37 | ER ---
Nurse's Notes [facility] Name: Zohaib Talamantes Age: 33 yrs Sex: Male : 1985 Arrival Date: 11/29/2018 Time: 20:51 Bed 4 Private MD: Diagnosis: Thrombosed external hemorrhoid Presentation: 11/29 21:12 Presenting complaint: Patient states: pain and Hemorid since yesterday. pt denies ak1 bleeding. pt last BM was 2 days RN EMERGENCY ROOM. pt denies constipation. Transition of care: patient was not received from another setting of care. Onset of symptoms is unknown. Risk Assessment: Do you want to hurt yourself or someone else? Patient reports no desire to harm self or others. Initial Sepsis Screen: Does the patient meet any 2 criteria? No. Patient's initial sepsis screen is negative. Does the patient have a suspected source of infection? No. Patient's initial sepsis screen is negative. Care prior to arrival: None. 21:12 Method Of Arrival: Ambulatory ak1 21:12 Acuity: TOREY 4 ak1 Triage Assessment: 21:14 General: Appears uncomfortable, Behavior is calm, cooperative. Pain: Complains of pain ak1 in gluteal cleft. EENT: No signs and/or symptoms were reported regarding the EENT system. Neuro: No deficits noted. Cardiovascular: No deficits noted. Respiratory: No deficits noted. GI: No signs and/or symptoms were reported involving the gastrointestinal system. : No signs and/or symptoms were reported regarding the genitourinary system. Derm: No signs and/or symptoms reported regarding the dermatologic system. Musculoskeletal: No signs and/or symptoms reported regarding the musculoskeletal system. Historical: - Allergies: 21:14 Toradol; ak1 - Home Meds: 21:14 None [Active]; ak1 - PMHx: 21:14 None; ak1 - PSHx: 21:14 None; ak1 - Immunization history:: Adult Immunizations unknown. - Social history:: Smoking status: Patient uses tobacco products, smokes one-half pack cigarettes per day. - Ebola Screening: : No symptoms or risks identified at this time. - Family history:: not pertinent. - Hospitalizations: : No recent hospitalization is reported. Screenin:15 Abuse screen: Denies threats or abuse. Denies injuries from another. Nutritional ak1 screening: No deficits noted. Tuberculosis screening: No symptoms or risk factors identified. Fall Risk None identified. Assessment: 21:45 General: Appears in no apparent distress. uncomfortable, slender, Behavior is calm, bb cooperative. Pain: Complains of pain in buttocks and gluteal cleft. Neuro: Level of Consciousness is awake, alert, obeys commands, Oriented to person, place, time, situation. Cardiovascular: No deficits noted. Respiratory: Respiratory effort is even, unlabored. GI: Reports pain to rectum and hemorrhoids. Derm: Skin is pink, warm \T\ dry. Musculoskeletal: Circulation, motion, and sensation intact. 21:47 Reassessment: pt verbalized understanding of and agrees to plan of care discharge bb instructions given pt ambulated with steady gait to exit accompanied by friend. Vital Signs: 21:12 BP 119 / 79; Pulse 60; Resp 16; Temp 98.2; Pulse Ox 98% on R/A; Weight 66.22 kg (R); ak1 Height 5 ft. 11 in. (180.34 cm) (R); Pain 9/10; 21:12 Body Mass Index 20.36 (66.22 kg, 180.34 cm) ak1 ED Course: 20:51 Patient arrived in ED. es 21:11 Jesenia Vazquez, RN is Primary Nurse. ak1 21:13 Triage completed. ak1 21:14 Arm band placed on Patient placed in an exam room, on a stretcher, Patient notified of ak1 wait time. 21:24 Stefan Cole MD is Attending Physician. rn 21:36 Randy Valenzuela MD is Referral Physician. rn 21:36 Henry Barnett MD is Referral Physician. rn 21:41 No provider procedures requiring assistance completed. Patient did not have IV access ak1 during this emergency room visit. 21:42 Patient has correct armband on for positive identification. Bed in low position. Call ak1 light in reach. Side rails up X 1. Pulse ox on. NIBP on. Administered Medications: No medications were administered Outcome: 21:37 Discharge ordered by . rn 21:41 Discharged to home ambulatory. ak1 21:41 Condition: good 21:47 Discharge instructions given to patient, Instructed on discharge instructions, follow bb up and referral plans. medication usage, Demonstrated understanding of instructions, follow-up care, medications, Prescriptions given X 2. 21:48 Patient left the ED. bb Signatures: Dora Castillo Brenda, RN RN bb Stefan Cole MD MD rn Krenek, Amber, RN RN ak1
--- NOTE | 2018-11-29 21:37 | EDPHYS ---
Physician Documentation [facility] Name: Zohaib Talamantes Age: 33 yrs Sex: Male : 1985 Arrival Date: 11/29/2018 Time: 20:51 Bed 4 Private MD: ED Physician Stefan Cole HPI: 11/29 21:34 This 33 yrs old Male presents to ER via Ambulatory with complaints of rn Hemorrhoids. 21:34 The patient presents to the emergency department with pain in the rectal area. Onset: rn The symptoms/episode began/occurred 2 day(s) ago. Modifying factors: The symptoms are alleviated by nothing, The symptoms are aggravated by bowel movement, sitting position. The patient has not experienced similar symptoms in the past. The patient has not recently seen a physician. Reports hemorrhoids, no bleeding, no fever, no diarrhea, reports strains a lot. . Historical: - Allergies: 21:14 Toradol; ak1 - Home Meds: 21:14 None [Active]; ak1 - PMHx: 21:14 None; ak1 - PSHx: 21:14 None; ak1 - Immunization history:: Adult Immunizations unknown. - Social history:: Smoking status: Patient uses tobacco products, smokes one-half pack cigarettes per day. - Ebola Screening: : No symptoms or risks identified at this time. - Family history:: not pertinent. - Hospitalizations: : No recent hospitalization is reported. ROS: 21:34 Constitutional: Negative for fever, chills, and weight loss, Abdomen/GI: Negative for rn abdominal pain, nausea, vomiting, diarrhea, and constipation, + hemorrhoids Exam: 21:34 Constitutional: This is a well developed, well nourished patient who is awake, alert, rn and in no acute distress. Abdomen/GI: soft, non-tender, + external hemorrhoid with small amount of thrombosis. Vital Signs: 21:12 BP 119 / 79; Pulse 60; Resp 16; Temp 98.2; Pulse Ox 98% on R/A; Weight 66.22 kg (R); ak1 Height 5 ft. 11 in. (180.34 cm) (R); Pain 9/10; 21:12 Body Mass Index 20.36 (66.22 kg, 180.34 cm) ak1 MDM: 21:24 Patient medically screened. rn 21:34 Differential diagnosis: hemorrhoids. Data reviewed: vital signs, nurses notes, and as a rn result, I will discharge patient. Counseling: I had a detailed discussion with the patient and/or guardian regarding: the historical points, exam findings, and any diagnostic results supporting the discharge/admit diagnosis, the need for outpatient follow up, to return to the emergency department if symptoms worsen or persist or if there are any questions or concerns that arise at home. Special discussion: I discussed with the patient/guardian in detail that at this point there is no indication for admission to the hospital. It is understood, however, that if the symptoms persist or worsen the patient needs to return immediately for re-evaluation. Based on the history and exam findings, there is no indication for further emergent testing or inpatient evaluation. I discussed with the patient/guardian the need to see the controlled area checker for further evaluation of the symptoms. I discussed with the patient/guardian the need to see the general surgeon for further evaluation of the symptoms. Administered Medications: No medications were administered Disposition: 11/29/18 21:37 Discharged to Home. Impression: Thrombosed external hemorrhoid. - Condition is Stable. - Discharge Instructions: Hemorrhoids, How to Take a Sitz Bath, Nonsurgical Procedures for Hemorrhoids. - Prescriptions for Anusol- HC 2.5 % Rectal Cream - Apply to affected area 1 application by TOPICAL route every 8 hours As needed; 30 gram. Tylenol- Codeine #3 300-30 mg Oral Tablet - take 2 tablet by ORAL route every 6 hours As needed; 15 tablet. - Medication Reconciliation Form, Thank You Letter, Antibiotic Education, Prescription Opioid Use form. - Follow up: Randy Valenzuela MD; When: Tomorrow; Reason: Recheck today's complaints, Re-evaluation by your physician. Follow up: Henry Barnett MD; When: Tomorrow; Reason: Recheck today's complaints, Re-evaluation by your physician. - Problem is new. - Symptoms are unchanged. Signatures: Lluvia Bowles RN RN Stefan Ureña MD MD rn Krenek, Amber, RN RN ak1 Corrections: (The following items were deleted from the chart) 21:48 21:37 11/29/2018 21:37 Discharged to Home. Impression: Thrombosed external hemorrhoid. bb Condition is Stable. Forms are Medication Reconciliation Form, Thank You Letter, Antibiotic Education, Prescription Opioid Use. Follow up: Randy Valenzuela; When: Tomorrow; Reason: Recheck today's complaints, Re-evaluation by your physician. Follow up: Henry Barnett; When: Tomorrow; Reason: Recheck today's complaints, Re-evaluation by your physician. Problem is new. Symptoms are unchanged. rn
== END 2018-11-29 21:48 | disposition home or self-care (01) ==
LOC: ER 20:48
DX: K64.5 Perianal venous thrombosis (principal); F17.210 Nicotine dependence, cigarettes, uncomplicated; Z88.6 Allergy status to analgesic agent
CPT/HCPCS: 99283

== ENCOUNTER 2018-12-04 21:22 | Emergency (ER) | payer SELFPAY ==
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
[2018-12-04 22:17] LABS: Absolute Lymphocytes (CBC) 3.1 K/uL (0.7-4.9); Absolute Monocytes 0.7 K/uL (0.1-1.3); Absolute Neutrophil 6.3 K/uL (1.8-8.0); Basophils % 0.4 % (0-1.3); Eosinophils % 2.6 % (0-4.4); MPV 7.8 fL (7.6-11.3); Monocytes % 6.7 % (3.3-12.3); RBC Red Blood Cell Count 3.96 M/uL (4.33-5.43)
[2018-12-04] MEDS ORDERED: HYDROCODONE/APAP 5/325 MG TAB ONE (22:19)
[2018-12-04 22:41] LABS: BUN Blood Urea Nitrogen 21 mg/dL (7-18); Bicarbonate 26 mmol/L (21-32); Glucose Level 141 mg/dL (74-106); Potassium 3.3 mmol/L (3.5-5.1); Sodium Level 141 mmol/L (136-145); Troponin (Emerg Dept Use Only) < 0.02 ng/mL (0.0-0.045)
--- NOTE | 2018-12-04 22:45 | ER ---
Nurse's Notes [facility] Name: Zohaib Talamantes Age: 33 yrs Sex: Male : 1985 Arrival Date: 12/04/2018 Time: 21:25 Bed 23 Private MD: Diagnosis: Chest pain, unspecified;Pleurisy Presentation: 12/04 21:43 Presenting complaint: Patient states: he is having intermittent chest pain x 2 days bb pain does not radiate pt states he has a little shortness of breath and is feeling fatigued and light headed as well. Transition of care: patient was not received from another setting of care. Onset of symptoms was December 03, 2018. Risk Assessment: Do you want to hurt yourself or someone else? Patient reports no desire to harm self or others. Initial Sepsis Screen: Does the patient meet any 2 criteria? No. Patient's initial sepsis screen is negative. Does the patient have a suspected source of infection? No. Patient's initial sepsis screen is negative. Care prior to arrival: None. 21:43 Method Of Arrival: Ambulatory bb 21:43 Acuity: TOREY 3 bb Historical: - Allergies: 21:45 Toradol; bb - Home Meds: 21:45 None [Active]; bb - PMHx: 21:45 hemorrhoids; irregular heart beat; bb - PSHx: 21:45 None; bb - Immunization history:: Adult Immunizations up to date. - Social history:: Smoking status: Patient uses tobacco products, smokes one-half pack cigarettes per day, Patient/guardian denies using alcohol, street drugs. - Ebola Screening: : No symptoms or risks identified at this time. - Family history:: not pertinent. - Hospitalizations: : No recent hospitalization is reported. Screenin:17 Abuse screen: Denies threats or abuse. Nutritional screening: No deficits noted. la1 Tuberculosis screening: No symptoms or risk factors identified. Fall Risk None identified. Assessment: 22:16 General: Appears in no apparent distress. Behavior is calm. Pain: Complains of pain in la1 anterior aspect of left upper chest Pain does not radiate. Pain currently is 5 out of 10 on a pain scale. Quality of pain is described as squeezing, Is intermittent. Neuro: Level of Consciousness is awake, alert, obeys commands, Oriented to person, place, time, situation. Cardiovascular: Heart tones S1 S2 present Capillary refill < 3 seconds Patient's skin is warm and dry. Rhythm is sinus rhythm. Respiratory: Airway is patent Respiratory effort is even, unlabored, Respiratory pattern is regular, symmetrical, Breath sounds are clear bilaterally. GI: No signs and/or symptoms were reported involving the gastrointestinal system. : No signs and/or symptoms were reported regarding the genitourinary system. Vital Signs: 21:45 BP 119 / 67; Pulse 63; Resp 16 S; Temp 97.9(O); Pulse Ox 99% on R/A; Weight 62.14 kg bb (R); Height 5 ft. 11 in. (180.34 cm) (R); Pain 7/10; 23:01 BP 110 / 67; Pulse 81; Resp 16; Pulse Ox 98% on R/A; la1 21:45 Body Mass Index 19.11 (62.14 kg, 180.34 cm) bb ED Course: 21:25 Patient arrived in ED. es 21:41 August Cheatham, RN is Primary Nurse. la1 21:45 Triage completed. bb 21:45 Arm band placed on Patient placed in an exam room, on a stretcher, on compliance monitor, bb on pulse oximetry. EKG completed in triage. Results shown to MD. Family accompanied patient. 21:53 Stefan Cole MD is Attending Physician. rn 22:10 Missed attempt(s): 20 gauge in right antecubital area. lt1 22:10 Initial lab(s) drawn, by me, sent to lab. lt1 22:17 Placed in gown. Bed in low position. Call light in reach. Pulse ox on. NIBP on. la1 22:41 XRAY Chest (1 view) In Process Unspecified. EDMS 23:00 No provider procedures requiring assistance completed. IV discontinued, intact, la1 bleeding controlled, No redness/swelling at site. Pressure dressing applied. Patient maintains SpO2 saturation greater than 95% on room air. Administered Medications: 22:15 Drug: [place] 5 mg-325 mg 1 tabs Route: PO; la1 Outcome: 22:44 Discharge ordered by . rn 23:00 Discharged to home ambulatory. la1 23:00 Condition: stable 23:00 Discharge instructions given to patient, Instructed on discharge instructions, follow up and referral plans. medication usage, Demonstrated understanding of instructions, follow-up care. 23:01 Patient left the ED. la1 Signatures: Dispatcher [employer] Dora Ornelas Brenda, RN RN bb Nieto, Roman, MD MD rn Attema, Lee, RN RN la1 Tran, Leah Angela
--- NOTE | 2018-12-04 22:45 | EDPHYS ---
Physician Documentation [facility] Name: Zohaib Talamantes Age: 33 yrs Sex: Male : 1985 Arrival Date: 12/04/2018 Time: 21:25 Bed 23 Private MD: ED Physician Stefan Cole HPI: 12/04 22:23 This 33 yrs old Male presents to ER via Ambulatory with complaints of Chest rn Pain. 22:23 The patient or guardian reports chest pain that is located primarily in the anterior rn chest wall, left. The pain does not radiate. Associated signs and symptoms: Pertinent negatives: abdominal pain, cough, diaphoresis, lightheadedness, near syncope, palpitations, recent travel, shortness of breath, syncope, vomiting. The chest pain is described as sharp, squeezing. Duration: The patient or guardian reports multiple episodes, that are intermittent, the episodes last approximately 5 minute(s). Modifying factors: The symptoms are alleviated by nothing. the symptoms are aggravated by nothing. Severity of pain: At its worst the pain was mild in the emergency department the pain is unchanged. The patient has not experienced similar symptoms in the past. 22:24 Reports 2 days of left sided chest pain, non-radiating, reports smokes, no sob, no rn fever, no trauma, no hemoptysis, denies famhx of early cardiac problems. . Historical: - Allergies: 21:45 Toradol; bb - Home Meds: 21:45 None [Active]; bb - PMHx: 21:45 hemorrhoids; irregular heart beat; bb - PSHx: 21:45 None; bb - Immunization history:: Adult Immunizations up to date. - Social history:: Smoking status: Patient uses tobacco products, smokes one-half pack cigarettes per day, Patient/guardian denies using alcohol, street drugs. - Ebola Screening: : No symptoms or risks identified at this time. - Family history:: not pertinent. - Hospitalizations: : No recent hospitalization is reported. ROS: 22:24 Constitutional: Negative for fever, chills, and weight loss, Eyes: Negative for injury, rn pain, redness, and discharge, Cardiovascular: Negative for palpitations, and edema, Respiratory: Negative for shortness of breath, cough, wheezing Abdomen/GI: Negative for abdominal pain, nausea, vomiting, diarrhea, and constipation, MS/Extremity: Negative for injury and deformity, Skin: Negative for injury, rash, and discoloration, Neuro: Negative for headache, weakness, numbness, tingling, and seizure. Exam: 22:24 Constitutional: This is a well developed, well nourished patient who is awake, alert, rn appears anxious Head/Face: Normocephalic, atraumatic. Eyes: Pupils equal round and reactive to light, extra-ocular motions intact. Lids and lashes normal. Conjunctiva and sclera are non-icteric and not injected. Cornea within normal limits. Periorbital areas with no swelling, redness, or edema. ENT: MMM Neck: Trachea midline, no thyromegaly or masses palpated, and no cervical lymphadenopathy. Supple, full range of motion without nuchal rigidity, or vertebral point tenderness. No Meningismus. Cardiovascular: Regular rate and rhythm with a normal S1 and S2. No gallops, murmurs, or rubs.No JVD. No pulse deficits. Respiratory: Lungs have equal breath sounds bilaterally, clear to auscultation Abdomen/GI: soft, non-tender Skin: Warm, dry with normal turgor. Normal color with no rashes, no lesions, and no evidence of cellulitis. MS/ Extremity: Pulses equal, no cyanosis. Neurovascular intact. Full, normal range of motion. Equal circumference. Neuro: Awake and alert, GCS 15, oriented to person, place, time, and situation. Cranial nerves II-XII grossly intact. Motor strength 5/5 in all extremities. Sensory grossly intact. Cerebellar exam normal. Vital Signs: 21:45 BP 119 / 67; Pulse 63; Resp 16 S; Temp 97.9(O); Pulse Ox 99% on R/A; Weight 62.14 kg bb (R); Height 5 ft. 11 in. (180.34 cm) (R); Pain 7/10; 23:01 BP 110 / 67; Pulse 81; Resp 16; Pulse Ox 98% on R/A; la1 21:45 Body Mass Index 19.11 (62.14 kg, 180.34 cm) bb MDM: 21:53 Patient medically screened. rn 22:44 Differential diagnosis: acute pericarditis, anxiety, chest wall pain, costochondritis, rn esophagitis, gastritis, gastroesophageal reflux disease (GERD), pleurisy, pneumonia, pneumothorax. Data reviewed: vital signs, nurses notes, lab test result(s), EKG, radiologic studies, plain films, and as a result, I will discharge patient. Counseling: I had a detailed discussion with the patient and/or guardian regarding: the historical points, exam findings, and any diagnostic results supporting the discharge/admit diagnosis, lab results, radiology results, the need for outpatient follow up, to return to the emergency department if symptoms worsen or persist or if there are any questions or concerns that arise at home. Special discussion: I discussed with the patient/guardian in detail that at this point there is no indication for admission to the hospital. It is understood, however, that if the symptoms persist or worsen the patient needs to return immediately for re-evaluation. Based on the history and exam findings, there is no indication for further emergent testing or inpatient evaluation. I discussed with the patient/guardian the need to see the primary care provider for further evaluation of the symptoms. 12/04 22:01 Order name: CBC with Diff; Complete Time: 22:43 rn 12/04 22: Order name: Basic Metabolic Panel; Complete Time: 22:43 rn 12/04 22:01 Order name: Troponin (emerg Dept Use Only); Complete Time: 22:43 rn 12/04 22:01 Order name: EKG; Complete Time: 22: rn 12/04 22:01 Order name: XRAY Chest (1 view) rn 12/04 22:01 Order name: IV Start; Complete Time: 22:06 rn 12/04 22:01 Order name: EKG - Nurse/Tech; Complete Time: 22:06 rn Administered Medications: 22:15 Drug: [place] 5 mg-325 mg 1 tabs Route: PO; la1 Disposition: 12/04/18 22:44 Discharged to Home. Impression: Chest pain, unspecified, Pleurisy. - Condition is Stable. - Discharge Instructions: Nonspecific Chest Pain, Pain Without a Known Cause, Pleurisy. - Medication Reconciliation Form, Thank You Letter, Antibiotic Education, Prescription Opioid Use form. - Follow up: Private Physician; When: As needed; Reason: Recheck today's complaints, Re-evaluation by your physician. - Problem is new. - Symptoms have improved. Signatures: Dispatcher [employer] EDMS Bowles, Lluvia, Stefan Ortega RN, MD MD rn Attema, Lee, RN RN la1 Corrections: (The following items were deleted from the chart) 23:01 22:44 12/04/2018 22:44 Discharged to Home. Impression: Chest pain, unspecified; la1 Pleurisy. Condition is Stable. Forms are Medication Reconciliation Form, Thank You Letter, Antibiotic Education, Prescription Opioid Use. Follow up: Private Physician; When: As needed; Reason: Recheck today's complaints, Re-evaluation by your physician. Problem is new. Symptoms have improved. rn
--- NOTE | 2018-12-05 08:13 | RAD REPORT ---
EXAM DESCRIPTION: RAD - Chest Single View - 12/04/2018 10:41 pm CLINICAL HISTORY: CHEST PAIN Chest pain. COMPARISON: Chest Single View dated 07/20/2017; CHEST PA AND LAT 2 VIEW dated 09/10/2013 FINDINGS: Portable technique limits examination quality. The lungs are grossly clear. The heart is normal in size. No displaced fractures. IMPRESSION: No acute intrathoracic process suspected.
--- NOTE | 2018-12-05 08:49 | EKG ---
Test Date: 2018-12-04 Test Time: 21:41:11 Product Safety Professional: TEODOROT MEASUREMENT RESULTS: Intervals: Rate: 62 NJ: 168 QRSD: 94 QT: 408 QTc: 414 [place]: P: 52 [place]: 168 QRS: 91 T: 68 INTERPRETIVE STATEMENTS: Normal sinus rhythm Rightward axis Borderline ECG Compared to ECG 07/20/2017 02:56:43 Sinus arrhythmia no longer present Incomplete right bundle-branch block no longer present Electronically Signed On 12-05-18 08:48:26 MERCHANDISE DISTRIBUTOR by Asa Rodriguez
== END 2018-12-04 23:01 | disposition home or self-care (01) ==
LOC: ER 21:22
DX: R07.9 Chest pain, unspecified (principal); R09.1 Pleurisy; Z88.6 Allergy status to analgesic agent; F17.210 Nicotine dependence, cigarettes, uncomplicated
CPT/HCPCS: 36415; 71045; 80048; 84484; 85025; 93005; 99285

== ENCOUNTER 2019-02-26 11:55 | Emergency (ER) | payer SELFPAY ==
--- OUTSIDE RECORDS SUMMARY | 2019-02-26 11:57 | XMS REPORT | Clinical Summary ---
:1985 Author Organization [facility] Address [address] [place] [address] Care Team Providers Name Role Phone Asked, No Pcp Primary Care Provider Unavailable Allergies No Known Allergies Medications Medication Sig Dispensed Refills Start Date End Date Status ibuprofen Take TID for 21 tablet 0 12/25/2017 Active (ADVIL,MOTRIN) 800 MG three days then tablet TID prn Active Problems Not on file Social History Tobacco Use Types Packs/Day Years Used Date Never Smoker Smokeless Tobacco: Never Used Alcohol Use Drinks/Week oz/Week Comments No Sex Assigned at Date Recorded Not on file Job Start Date Occupation Industry Not on file Not on file Not on file Travel History Travel Start Travel End No recent travel history available. Last Filed Vital Signs Not on file Plan of Treatment Health Maintenance Due Date Last Done Comments INFLUENZA VACCINE 05/11/2019 Results Not on fileafter 02/25/2018 Advance Directives Patient has advance care planning documents on file. For more information, please contact:[id number] [place] [address]
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
--- NOTE | 2019-02-26 14:03 | RAD REPORT ---
EXAM DESCRIPTION: RAD - Knee Right 3 View - 02/26/2019 1:58 pm CLINICAL HISTORY: PAIN COMPARISON: No comparisons FINDINGS: No bone or joint abnormality is seen.
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
--- NOTE | 2019-02-26 14:18 | EDPHYS ---
Physician Documentation [facility] Name: Zohaib Talamantes Age: 33 yrs Sex: Male : 1985 Arrival Date: 02/26/2019 Time: 11:58 Bed 26 Private MD: ED Physician Darnell Moreno HPI: 02/26 13:22 This 33 yrs old Male presents to ER via Ambulatory with complaints of Knee jmm Pain. 13:22 The patient presents with pain. Onset: The symptoms/episode began/occurred gradually, 3 jmm day(s) ago. Modifying factors: The symptoms are alleviated by nothing. the symptoms are aggravated by nothing. Associated signs and symptoms: Pertinent negatives fever. This is a 33 year old male with a history of hemorrhoids that presents to the ED with complaints of right knee pain beginning 3 days ago. Patient denies known injury. Patient states he has a strenuous job. Denies fever. . Historical: - Allergies: 12:11 Toradol; ph - PMHx: 12:11 hemorrhoids; irregular heart beat; ph - PSHx: 12:11 None; ph - Immunization history:: Adult Immunizations unknown. - Social history:: Smoking status: Patient uses tobacco products, denies chronic smoking, but will smoke occasionally. - Ebola Screening: : No symptoms or risks identified at this time. ROS: 13:22 Constitutional: Negative for fever, chills, and weight loss, Cardiovascular: Negative jmm for chest pain, palpitations, and edema, Respiratory: Negative for shortness of breath, cough, wheezing, and pleuritic chest pain. 13:22 MS/extremity: Positive for pain. 13:22 All other systems are negative. Exam: 13:22 Constitutional: This is a well developed, well nourished patient who is awake, alert, jmm and in no acute distress. Head/Face: atraumatic. Eyes: EOMI, no conjunctival erythema appreciated ENT: Moist Mucus Membranes Neck: Trachea midline, Supple Chest/axilla: Normal chest wall appearance and motion. Cardiovascular: Regular rate and rhythm. No edema appreciated Respiratory: Normal respirations, no respiratory distress appreciated Abdomen/GI: Non distended, soft 13:22 Musculoskeletal/extremity: right anterior knee pain on palpation. 13:22 Musculoskeletal/extremity: FROM appreciated, compartments are soft, full dorsalis pulse, NVI. 13:22 Skin: Appearance: Color: normal in color. 13:22 Neuro: Orientation: is normal, Mentation: is normal, Memory: is normal. 13:22 Psych: Behavior/mood is pleasant, cooperative. Vital Signs: 12:11 BP 113 / 76; Pulse 89; Resp 18; Temp 97.8; Pulse Ox 100% on R/A; Weight 66.22 kg; ph Height 5 ft. 11 in. (180.34 cm); Pain 8/10; 12:11 Body Mass Index 20.36 (66.22 kg, 180.34 cm) ph MDM: 13:16 Patient medically screened. [facility] 14:15 Data reviewed: vital signs, nurses notes. Counseling: I had a detailed discussion with [facility] the patient and/or guardian regarding: the historical points, exam findings, and any diagnostic results supporting the discharge/admit diagnosis, radiology results, the need for outpatient follow up, to return to the emergency department if symptoms worsen or persist or if there are any questions or concerns that arise at home. ED course: Patient is advised to follow up with orthopedics. Patient is advised to return to the ED if symptoms worsen. Patient understood and agrees with the plan of care. . 02/26 12:13 Order name: XRAY Knee RIGHT 3 view; Complete Time: 14:06 02/26 14:08 Order name: Domo wrap-joint; Complete Time: 14:18 [facility] Administered Medications: 14:18 Drug: Decadron 10 mg Route: IM; Site: Other; [facility] 14:18 Follow up: Response: Medication administered at discharge. la1 Disposition: 02/26/19 14:18 Discharged to Home. Impression: Internal derangement of knee. - Condition is Stable. - Discharge Instructions: Knee Pain. - Prescriptions for Tylenol- Codeine #3 300-30 mg Oral Tablet - take 2 tablet by ORAL route every 6 hours As needed; 6 tablet. - Medication Reconciliation Form, Thank You Letter, Antibiotic Education, Prescription Opioid Use form. - Follow up: Ezekiel Flores MD; When: 2 - 3 days; Reason: Recheck today's complaints, Continuance of care, Re-evaluation by your physician. Addendum: 03/02/2019 20:36 Co-signature as Attending Physician, Darnell Moreno MD. g s Signatures: Dispatcher [employer] EDMS Jules Warner PA PA jmm Attema, Lee, RN RN la1 Nelly Headley RN RN ph MorenoDarnell MD MD gs Corrections: (The following items were deleted from the chart) 02/26 14:25 14:18 02/26/2019 14:18 Discharged to Home. Impression: Internal derangement of knee. la1 Condition is Stable. Forms are Medication Reconciliation Form, Thank You Letter, Antibiotic Education, Prescription Opioid Use. Follow up: Dr. Ezekiel Flores; When: 2 - 3 days; Reason: Recheck today's complaints, Continuance of care, Re-evaluation by your physician. jr
[2019-02-26] MEDS ORDERED: DEXAMETHASONE 10 MG/ML VIAL ONE (14:23)
== END 2019-02-26 14:25 | disposition home or self-care (01) ==
LOC: ER 11:55
DX: M23.91 Unspecified internal derangement of right knee (principal); Z72.0 Tobacco use; Z88.5 Allergy status to narcotic agent
CPT/HCPCS: 96372; 99283; J1100

== ENCOUNTER 2019-08-01 09:38 | Emergency (ER) | payer SELFPAY ==
[2019-08-01] MEDS ORDERED: HYDROCODONE/APAP 10/325 TAB ONE (10:05)
--- NOTE | 2019-08-01 10:07 | EDPHYS ---
Physician Documentation [facility] Name: Zohaib Talamantes Age: 33 yrs Sex: Male : 1985 Arrival Date: 08/01/2019 Time: 09:40 Bed 7 Private MD: ED Physician Stefan Cole HPI: 08/01 10:01 This 33 yrs old Male presents to ER via Ambulatory with complaints of Insect rn Bite. 10:01 The patient presents with cellulitis of the left arm. Description: localized, rn erythematous, warm. Onset: The symptoms/episode began/occurred 2 day(s) ago. Possible cause(s): unknown. Severity of symptoms: At their worst the symptoms were moderate, in the emergency department the symptoms are unchanged. The patient has not experienced similar symptoms in the past. Reports working outside 2 days ago, when came in had a rash to left forearm, progressed to boil/blister that popped, and now has ulcerated center, did not see insect or spider, reports tender around local area of inflammation. NO fever. Had been trying antifungal meds without improvement. . Historical: - Allergies: 09:54 Toradol; ss - Home Meds: 09:54 None [Active]; ss - PMHx: 09:54 hemorrhoids; irregular heart beat; ss - PSHx: 09:54 None; ss - Immunization history:: Adult Immunizations up to date. - Social history:: Smoking status: Patient uses tobacco products, smokes one-half pack cigarettes per day. - Ebola Screening: : Patient denies exposure to infectious person Patient denies travel to an Ebola-affected area in the 21 days before illness onset. - Family history:: not pertinent. - Hospitalizations: : No recent hospitalization is reported. ROS: 10:01 Constitutional: Negative for fever, chills, and weight loss, Skin: + ulceration and rn rash to left forearm Exam: 10:01 Constitutional: This is a well developed, well nourished patient who is awake, alert, rn and in no acute distress. MS/ Extremity: Pulses equal, no cyanosis. Neurovascular intact. Full, normal range of motion. Equal circumference.+ ulcerated lesion surrounded by erythema and tenderness, total approx 3cm irregular. No streaking or fluctuance. Vital Signs: 09:52 BP 126 / 82; Pulse 86; Resp 16; Temp 98.3(TE); Pulse Ox 100% on R/A; ss MDM: 09:46 Patient medically screened. rn 10:01 Differential diagnosis: cellulitis, insect bite. Data reviewed: vital signs, nurses rn notes, and as a result, I will discharge patient. Counseling: I had a detailed discussion with the patient and/or guardian regarding: the historical points, exam findings, and any diagnostic results supporting the discharge/admit diagnosis, the need for outpatient follow up, to return to the emergency department if symptoms worsen or persist or if there are any questions or concerns that arise at home. Special discussion: I discussed with the patient/guardian in detail that at this point there is no indication for admission to the hospital. It is understood, however, that if the symptoms persist or worsen the patient needs to return immediately for re-evaluation. ED course: Possible insect or spider bite given rapid progression and central ulceration, also no improvement with anti-fungal therapy. Will prescribe topical and oral abx. Return precautions given and understood. . Administered Medications: 10:13 Drug: [place] 10 mg-325 mg 1 tabs Route: PO; sv 10:13 Follow up: Response: Medication administered at discharge. sv Disposition: 08/01/19 10:06 Discharged to Home. Impression: Insect bite (nonvenomous) of forearm, Cellulitis of left upper limb. - Condition is Stable. - Discharge Instructions: Cellulitis, Adult. - Prescriptions for Bactroban 2 % Topical Ointment - Apply to affected area 1 application by TOPICAL route every 12 hours; 30 gram. Tylenol- Codeine #3 300-30 mg Oral Tablet - take 1 tablet by ORAL route every 6 hours As needed; 15 tablet. Bactrim DS 800- 160 mg Oral Tablet - take 1 tablet by ORAL route every 12 hours for 10 days; 20 tablet. Doxycycline Monohydrate 100 mg Oral Tablet - take 1 tablet by ORAL route every 12 hours for 10 days; 20 tablet. - Medication Reconciliation Form, Thank You Letter, Antibiotic Education, Prescription Opioid Use form. - Follow up: Private Physician; When: As needed; Reason: Recheck today's complaints, Re-evaluation by your physician. - Problem is new. - Symptoms are unchanged. Signatures: Jasmyne Blank RN RN Cole, Stefan, MD MD rn Smirch, Viki, RN RN ss Corrections: (The following items were deleted from the chart) 10:04 10:01 Constitutional: Negative for fever, chills, and weight loss, Skin: + ulcerated rn lesion surrounded by erythema and tenderness, total approx 3cm irregular. No streaking or fluctuance. rn 10:15 10:06 08/01/2019 10:06 Discharged to Home. Impression: Insect bite (nonvenomous) of sv forearm; Cellulitis of left upper limb. Condition is Stable. Forms are Medication Reconciliation Form, Thank You Letter, Antibiotic Education, Prescription Opioid Use. Follow up: Private Physician; When: As needed; Reason: Recheck today's complaints, Re-evaluation by your physician. Problem is new. Symptoms are unchanged. rn
--- NOTE | 2019-08-01 10:07 | ER ---
Nurse's Notes [facility] Name: Zohaib Talamantes Age: 33 yrs Sex: Male : 1985 Arrival Date: 08/01/2019 Time: 09:40 Bed 7 Private MD: Diagnosis: Insect bite (nonvenomous) of forearm;Cellulitis of left upper limb Presentation: 08/01 09:52 Presenting complaint: Patient states: possible insect bite to L FA x 2 days. Spouse ss reports that they believed it was a ringworm, but it is getting worse. Transition of care: patient was not received from another setting of care. Onset of symptoms was July 30, 2019. Risk Assessment: Do you want to hurt yourself or someone else? Patient reports no desire to harm self or others. Initial Sepsis Screen: Does the patient meet any 2 criteria? No. Patient's initial sepsis screen is negative. Does the patient have a suspected source of infection? No. Patient's initial sepsis screen is negative. Care prior to arrival: None. 09:52 Method Of Arrival: Ambulatory ss 09:52 Acuity: TOREY 5 ss Historical: - Allergies: 09:54 Toradol; ss - Home Meds: 09:54 None [Active]; ss - PMHx: 09:54 hemorrhoids; irregular heart beat; ss - PSHx: 09:54 None; ss - Immunization history:: Adult Immunizations up to date. - Social history:: Smoking status: Patient uses tobacco products, smokes one-half pack cigarettes per day. - Ebola Screening: : Patient denies exposure to infectious person Patient denies travel to an Ebola-affected area in the 21 days before illness onset. - Family history:: not pertinent. - Hospitalizations: : No recent hospitalization is reported. Screenin:00 Abuse screen: Denies threats or abuse. Denies injuries from another. Nutritional sv screening: No deficits noted. Tuberculosis screening: No symptoms or risk factors identified. Fall Risk None identified. Assessment: 10:10 General: Appears in no apparent distress. uncomfortable, well developed, Behavior is sv calm, cooperative, appropriate for age. Pain: Complains of pain in dorsal aspect of left forearm. Neuro: Level of Consciousness is awake, alert, obeys commands, Oriented to person, place, time, situation, Moves all extremities. Full function Gait is steady. Respiratory: Respiratory effort is even, unlabored, Respiratory pattern is regular, symmetrical. Derm: Skin is healthy with good turgor, Skin is pink, warm \T\ dry. Wound noted dorsal aspect of left forearm Wound is open circular area. Vital Signs: 09:52 BP 126 / 82; Pulse 86; Resp 16; Temp 98.3(TE); Pulse Ox 100% on R/A; ss ED Course: 09:40 Patient arrived in ED. mr 09:46 Stefan Cole MD is Attending Physician. rn 09:52 Arm band placed on right wrist. ss 09:54 Triage completed. ss 10:00 Jasmyne Blank RN is Primary Nurse. sv 10:00 ED physician to see patient. sv 10:00 Patient has correct armband on for positive identification. Bed in low position. Call sv light in reach. 10:13 No provider procedures requiring assistance completed. Patient did not have IV access sv during this emergency room visit. Administered Medications: 10:13 Drug: [place] 10 mg-325 mg 1 tabs Route: PO; sv 10:13 Follow up: Response: Medication administered at discharge. sv Outcome: 10:06 Discharge ordered by . rn 10:13 Discharged to home ambulatory, with family. sv 10:13 Condition: stable 10:13 Discharge instructions given to patient, family, Instructed on discharge instructions, follow up and referral plans. medication usage, wound care, Demonstrated understanding of instructions, follow-up care, medications, wound care, Prescriptions given X 4. 10:15 Patient left the ED. sv Signatures: Jasmyne Blank RN RN sv Nicolette Lopez mr Stefan Cole MD MD rn [facility] Hospital[facility]iki cross RN RN
[2019-08-01 10:21] VITALS: BP 126/82; TEMP 98.3; O2SAT 100
== END 2019-08-01 10:15 | disposition home or self-care (01) ==
LOC: ER 09:38
DX: L03.114 Cellulitis of left upper limb (principal); F17.210 Nicotine dependence, cigarettes, uncomplicated; Z88.5 Allergy status to narcotic agent
CPT/HCPCS: 99283

== ENCOUNTER 2019-11-12 06:16 | Emergency (ER) | payer SELFPAY ==
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
[2019-11-12] MEDS ORDERED: ACETAMINOPHEN 325 MG TABLET ONE (07:00)
--- NOTE | 2019-11-12 07:23 | EDPHYS ---
Physician Documentation [facility] Name: Zohaib Talamantes Age: 33 yrs Sex: Male : 1985 Arrival Date: 11/12/2019 Time: 06:18 Bed 14 Private MD: SAQIB Physician Marquez Garcia HPI: 11/12 06:46 This 33 yrs old Male presents to ER via Ambulatory with complaints of Flu zan Symptoms. 06:46 The patient or guardian reports cough. Onset: The symptoms/episode began/occurred 1 zan day(s) ago. Modifying factors: The symptoms are alleviated by nothing. the symptoms are aggravated by nothing. Severity of symptoms: At their worst the symptoms were moderate, in the emergency department the symptoms are unchanged. Associated signs and symptoms: The patient has no apparent associated signs or symptoms. Severity of symptoms: At their worst the symptoms were mild moderate in the emergency department the symptoms are unchanged. Historical: - Allergies: 06:42 Toradol; rr5 - Home Meds: 06:42 None [Active]; rr5 - PMHx: 06:42 hemorrhoids; irregular heart beat; collpse lung; rr5 - PSHx: 06:42 None; rr5 - Immunization history:: Adult Immunizations up to date. - Coronavirus screen:: The patient has NOT traveled to [place], [place], or [place] in the past 14 days. - Social history:: Smoking status: Patient reports the use of cigarette tobacco products, 3-4 sticks per day, Patient/guardian denies using alcohol, street drugs. - Family history:: not pertinent. - Ebola Screening: : Patient negative for fever greater than or equal to 101.5 degrees Fahrenheit, and additional compatible Ebola Virus Disease symptoms Patient denies exposure to infectious person Patient denies travel to an Ebola-affected area in the 21 days before illness onset. ROS: 06:46 Constitutional: Negative for fever, chills, and weight loss, Eyes: Negative for injury, zan pain, redness, and discharge, ENT: Negative for injury, pain, and discharge, Neck: Negative for injury, pain, and swelling, Cardiovascular: Negative for chest pain, palpitations, and edema, Abdomen/GI: Negative for abdominal pain, nausea, vomiting, diarrhea, and constipation, Back: Negative for injury and pain, : Negative for injury, bleeding, discharge, and swelling, MS/Extremity: Negative for injury and deformity, Skin: Negative for injury, rash, and discoloration, Neuro: Negative for headache, weakness, numbness, tingling, and seizure, Psych: Negative for depression, anxiety, suicide ideation, homicidal ideation, and hallucinations, Allergy/Immunology: Negative for hives, rash, and allergies, Endocrine: Negative for neck swelling, polydipsia, polyuria, polyphagia, and marked weight changes, Hematologic/Lymphatic: Negative for swollen nodes, abnormal bleeding, and unusual bruising. 06:46 Respiratory: Positive for cough, with no reported sputum. Exam: 06:47 Head/Face: Normocephalic, atraumatic. Eyes: Pupils equal round and reactive to light, zan extra-ocular motions intact. Lids and lashes normal. Conjunctiva and sclera are non-icteric and not injected. Cornea within normal limits. Periorbital areas with no swelling, redness, or edema. ENT: Nares patent. No nasal discharge, no septal abnormalities noted. Tympanic membranes are normal and external auditory canals are clear. Oropharynx with no redness, swelling, or masses, exudates, or evidence of obstruction, uvula midline. Mucous membranes moist. Neck: Trachea midline, no thyromegaly or masses palpated, and no cervical lymphadenopathy. Supple, full range of motion without nuchal rigidity, or vertebral point tenderness. No Meningismus. Chest/axilla: Normal chest wall appearance and motion. Nontender with no deformity. No lesions are appreciated. Cardiovascular: Regular rate and rhythm with a normal S1 and S2. No gallops, murmurs, or rubs. Normal PMI, no JVD. No pulse deficits. Abdomen/GI: Soft, non-tender, with normal bowel sounds. No distension or tympany. No guarding or rebound. No evidence of tenderness throughout. Back: No spinal tenderness. No costovertebral tenderness. Full range of motion. Male : Normal genitalia with no discharge or lesions. Skin: Warm, dry with normal turgor. Normal color with no rashes, no lesions, and no evidence of cellulitis. MS/ Extremity: Pulses equal, no cyanosis. Neurovascular intact. Full, normal range of motion. Neuro: Awake and alert, GCS 15, oriented to person, place, time, and situation. Cranial nerves II-XII grossly intact. Motor strength 5/5 in all extremities. Sensory grossly intact. Cerebellar exam normal. Normal gait. Psych: Awake, alert, with orientation to person, place and time. Behavior, mood, and affect are within normal limits. 06:47 Constitutional: The patient appears febrile. 06:47 Respiratory: the patient does not display signs of respiratory distress, Respirations: normal, Breath sounds: are clear throughout, no bronchial sounds, no decreased breath sounds, no rales, rhonchi, no stridor, no wheezing. Vital Signs: 06:41 BP 124 / 68; Pulse 89; Resp 19; Temp 99.2; Pulse Ox 100% ; Weight 64.86 kg; Height 5 rr5 ft. 11 in. (180.34 cm); Pain 8/10; 06:41 Body Mass Index 19.94 (64.86 kg, 180.34 cm) rr5 MDM: 06:29 Patient medically screened. [facility] 06:47 Data reviewed: vital signs, nurses notes, lab test result(s), radiologic studies, plain [facility] films. 11/12 06:57 Order name: Flu; Complete Time: 07:38 [facility] 11/12 07:04 Order name: Strep; Complete Time: 07:38 rr5 11/12 06:45 Order name: Chest Pa And Lat (2 Views) XRAY [facility] 11/12 07:31 Order name: Throat Culture [facility] 11/12 06:45 Order name: PO challenge; Complete Time: 07:03 [facility] Administered Medications: 07:03 Drug: Tylenol 650 mg Route: PO; rr5 07:55 Follow up: Response: No adverse reaction sv 07:55 Drug: Rocephin (cefTRIAXone) 1 grams Route: IM; Site: right gluteus; sv 08:14 Follow up: Response: No adverse reaction sv 07:55 Drug: Tamiflu 75 mg Route: PO; sv 08:14 Follow up: Response: No adverse reaction sv 07:55 Drug: Zithromax 500 mg Route: PO; sv 08:14 Follow up: Response: No adverse reaction sv Disposition: 11/12/19 07:23 Discharged to Home. Impression: Fever, unspecified, Bronchitis, not specified as acute or chronic, Acute upper respiratory infection, unspecified. - Condition is Stable. - Discharge Instructions: Acute Bronchitis, Adult, Upper Respiratory Infection, Adult, Cool Mist Vaporizer, Cough, Adult. - Prescriptions for Tamiflu 75 mg Oral Capsule - take 1 tablet by ORAL route every 12 hours for 5 days; 10 tablet. Zithromax 500 mg Oral Tablet - take 1 tablet by ORAL route once daily for 4 days; 4 tablet. Cheratussin AC 10- 100 mg/5 mL Oral liquid - take 10 milliliter by ORAL route every 6 hours; 150 milliliter. - Medication Reconciliation Form, Thank You Letter, Antibiotic Education, Prescription Opioid Use form. - Work release form (11/12/19 11:27). ms - Follow up: Private Physician; When: 2 - 3 days; Reason: Recheck today's complaints, Continuance of care, Re-evaluation by your physician. Follow up: Jairo Lacy; When: 2 - 3 days; Reason: Recheck today's complaints, Re-evaluation by your physician. - Problem is new. - Symptoms have improved. Signatures: Dispatcher [employer] Jasmyne Infante RN RN Marquez Vázquez MD MD cha Roque, Raymond, RN RN rr5 Celia Mcelroy ms Corrections: (The following items were deleted from the chart) 08:12 07:23 11/12/2019 07:23 Discharged to Home. Impression: Fever, unspecified; Bronchitis, sv not specified as acute or chronic; Acute upper respiratory infection, unspecified. Condition is Stable. Discharge Instructions: Acute Bronchitis, Adult, Upper Respiratory Infection, Adult, Cool Mist Vaporizer, Cough, Adult. Prescriptions for Tamiflu 75 mg Oral Capsule - take 1 tablet by ORAL route every 12 hours for 5 days; 10 tablet, Zithromax 500 mg Oral Tablet - take 1 tablet by ORAL route once daily for 5 days; 5 tablet. and Forms are Medication Reconciliation Form, Thank You Letter, Antibiotic Education, Prescription Opioid Use. Follow up: Private Physician; When: 2 - 3 days; Reason: Recheck today's complaints, Continuance of care, Re-evaluation by your physician. Follow up: Jairo Lacy; When: 2 - 3 days; Reason: Recheck today's complaints, Re-evaluation by your physician. Problem is new. Symptoms have improved. zan
--- NOTE | 2019-11-12 07:23 | ER ---
Nurse's Notes [facility] Name: Zohaib Talamantes Age: 33 yrs Sex: Male : 1985 Arrival Date: 11/12/2019 Time: 06:18 Bed 14 Private MD: Diagnosis: Fever, unspecified;Bronchitis, not specified as acute or chronic;Acute upper respiratory infection, unspecified Presentation: 11/12 06:39 Presenting complaint: Patient states: started yesterday feeling sick, body ache, rr5 coughing and congestion. last started to have chills and fever T checked 102 F at around 0100H. Transition of care: patient was not received from another setting of care. Onset of symptoms was November 11, 2019. Risk Assessment: Do you want to hurt yourself or someone else? Patient reports no desire to harm self or others. Initial Sepsis Screen: Does the patient meet any 2 criteria? No. Patient's initial sepsis screen is negative. Does the patient have a suspected source of infection? Yes: Productive cough/pneumonia. Care prior to arrival: Medication(s) given: cough syrup. 06:39 Method Of Arrival: Ambulatory rr5 06:39 Acuity: TOREY 3 rr5 Historical: - Allergies: 06:42 Toradol; rr5 - Home Meds: 06:42 None [Active]; rr5 - PMHx: 06:42 hemorrhoids; irregular heart beat; collpse lung; rr5 - PSHx: 06:42 None; rr5 - Immunization history:: Adult Immunizations up to date. - Coronavirus screen:: The patient has NOT traveled to [place], [place], or [place] in the past 14 days. - Social history:: Smoking status: Patient reports the use of cigarette tobacco products, 3-4 sticks per day, Patient/guardian denies using alcohol, street drugs. - Family history:: not pertinent. - Ebola Screening: : Patient negative for fever greater than or equal to 101.5 degrees Fahrenheit, and additional compatible Ebola Virus Disease symptoms Patient denies exposure to infectious person Patient denies travel to an Ebola-affected area in the 21 days before illness onset. Screenin:42 Abuse screen: Denies threats or abuse. Denies injuries from another. Nutritional rr5 screening: No deficits noted. Tuberculosis screening: No symptoms or risk factors identified. Fall Risk None identified. Total Aquino Fall Scale indicates No Risk (0-24 pts). Assessment: 06:43 General: Appears in no apparent distress. uncomfortable, ill, Behavior is calm, rr5 cooperative, appropriate for age, Reports chills for fever for feeling ill for fatigue for 12-24 hours. Pain: Complains of pain in chest wall Pain does not radiate. Pain currently is 8 out of 10 on a pain scale. Quality of pain is described as aching, Pain began gradually, Is intermittent. Neuro: Level of Consciousness is awake, alert, obeys commands, Oriented to person, place, time, situation, Appropriate for age Reports weakness. Cardiovascular: Capillary refill < 3 seconds Patient's skin is warm and dry. Respiratory: Reports cough that is pain with cough Airway is patent Respiratory effort is even, unlabored, Respiratory pattern is regular, symmetrical, Onset: The symptoms/episode began/occurred yesterday. GI: No signs and/or symptoms were reported involving the gastrointestinal system. : No signs and/or symptoms were reported regarding the genitourinary system. EENT: No signs and/or symptoms were reported regarding the EENT system. Derm: Skin is intact, is healthy with good turgor, Skin temperature is warm. Musculoskeletal: Circulation, motion, and sensation intact. Capillary refill < 3 seconds. 06:43 Musculoskeletal: Reports pain in all over the body since yesterday. rr5 07:00 Reassessment: Patient appears in no apparent distress at this time. No changes from sv previously documented assessment. Patient and/or family updated on plan of care and expected duration. Pain level reassessed. Patient is alert, oriented x 3, equal unlabored respirations, skin warm/dry/pink. 07:55 Reassessment: Pt up for discharge but is to receive IM injection and then must wait IM sv shot time before discharge. 08:12 Reassessment: Patient appears in no apparent distress at this time. No changes from sv previously documented assessment. Patient and/or family updated on plan of care and expected duration. Pain level reassessed. Patient is alert, oriented x 3, equal unlabored respirations, skin warm/dry/pink. Vital Signs: 06:41 BP 124 / 68; Pulse 89; Resp 19; Temp 99.2; Pulse Ox 100% ; Weight 64.86 kg; Height 5 rr5 ft. 11 in. (180.34 cm); Pain 8/10; 06:41 Body Mass Index 19.94 (64.86 kg, 180.34 cm) rr5 ED Course: 06:18 Patient arrived in ED. cl3 06:27 Marquez Garcia MD is Attending Physician. zan 06:40 Triage completed. rr5 06:42 Arm band placed on. rr5 06:43 Patient has correct armband on for positive identification. Call light in reach. Pulse rr5 ox on. NIBP on. 07:07 Jasmyne Blank RN is Primary Nurse. sv 07:08 Strep Sent. sv 07:08 Flu and/or RSV swab sent to lab. rr5 07:23 Jairo Lacy MD is Referral Physician. zan 07:23 Chest Pa And Lat (2 Views) XRAY In Process Unspecified. EDMS 07:46 Throat Culture Sent. sv 08:12 No provider procedures requiring assistance completed. Patient did not have IV access sv during this emergency room visit. Administered Medications: 07:03 Drug: Tylenol 650 mg Route: PO; rr5 07:55 Follow up: Response: No adverse reaction sv 07:55 Drug: Rocephin (cefTRIAXone) 1 grams Route: IM; Site: right gluteus; sv 08:14 Follow up: Response: No adverse reaction sv 07:55 Drug: Tamiflu 75 mg Route: PO; sv 08:14 Follow up: Response: No adverse reaction sv 07:55 Drug: Zithromax 500 mg Route: PO; sv 08:14 Follow up: Response: No adverse reaction sv Outcome: 07:23 Discharge ordered by . zan 08:10 Discharged to home ambulatory, with family. sv 08:10 Condition: stable 08:10 Discharge instructions given to patient, family, Instructed on discharge instructions, follow up and referral plans. medication usage, keep hydrated Demonstrated understanding of instructions, follow-up care, medications, Prescriptions given X 3. 08:12 Patient left the ED. sv Signatures: Dispatcher [employer] EDJasmyne Carlos, RN Marquez Pearson MD MD cha Roque, Raymond RN RN rr5 Tip Viera cl3
[2019-11-12] MEDS ORDERED: CEFTRIAXONE 1000 MG/VIAL ONE (07:53)
[2019-11-12] MEDS ORDERED: LIDOCAINE 1% MPF 2 ML AMPULE ONE (07:53)
[2019-11-12] MEDS ORDERED: AZITHROMYCIN 250 MG TAB ONE (07:53)
[2019-11-12] MEDS ORDERED: OSELTAMIVIR 75 MG CAP ONE (07:53)
--- NOTE | 2019-11-12 08:18 | RAD REPORT ---
EXAM DESCRIPTION: RAD - Chest Pa And Lat (2 Views) - 11/12/2019 7:20 am CLINICAL HISTORY: COUGH COMPARISON: Chest Single View dated 12/04/2018 TECHNIQUE: Frontal and lateral views of the chest were obtained. FINDINGS: The lungs are clear of focal infiltrate. No acute lung parenchymal process seen. A focal s carring changes are present. Heart size is normal and central vasculature is within normal limits. No pleural effusion or pneumothorax seen. No acute bony finding noted. No aortic abnormality. IMPRESSION: No acute cardiopulmonary process. Chest findings match comparison study.
[2019-11-12 08:19] VITALS: BP 124/68; TEMP 99.2; O2SAT 100
== END 2019-11-12 08:12 | disposition home or self-care (01) ==
LOC: ER 06:16
DX: J40 Bronchitis, not specified as acute or chronic (principal); Z72.0 Tobacco use; Z88.5 Allergy status to narcotic agent
CPT/HCPCS: 71046; 87070; 87081; 87804; 96372; 99284; J2001

== ENCOUNTER 2020-03-13 17:25 | Emergency (ER) | payer SELFPAY ==
--- OUTSIDE RECORDS SUMMARY | 2020-03-13 17:28 | XMS REPORT | Clinical Summary ---
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
[2020-03-13 20:01] LABS: Protime INR 1.03
[2020-03-13 20:03] LABS: Absolute Lymphocytes (CBC) 2.8 K/uL (0.7-4.9); Basophils % 0.8 % (0-1.3); Hematocrit 37.2 % (39.6-49.0); Lymphocytes % 32.2 % (15.3-44.8); MPV 7.8 fL (7.6-11.3)
[2020-03-13 20:23] LABS: ALT/SGPT 33 U/L (12-78); AST/SGOT 18 U/L (15-37); Alkaline Phosphatase 58 U/L (45-117); BUN Blood Urea Nitrogen 15 mg/dL (7-18); Bicarbonate 25 mmol/L (21-32); Bilirubin Direct < 0.1 mg/dL (0-0.2); Bilirubin Total 0.2 mg/dL (0.2-1.0); Glucose Level 85 mg/dL (74-106); Magnesium 2.1 mg/dL (1.8-2.4); Protein, Total 7.2 g/dL (6.4-8.2); Sodium Level 142 mmol/L (136-145); Troponin (Emerg Dept Use Only) < 0.02 ng/mL (0.0-0.045)
[2020-03-13] MEDS ORDERED: FENTANYL CITR 100 MCG/2 ML ONE (20:33)
--- NOTE | 2020-03-13 21:39 | RAD REPORT ---
EXAM DESCRIPTION: RAD - Humerus Right - 03/13/2020 8:10 pm CLINICAL HISTORY: PAIN COMPARISON: No comparisons FINDINGS: No fracture is identified. There is no dislocation or periosteal reaction noted. No foreig n body or other soft tissue abnormality. IMPRESSION: Negative right humerus examination.
--- NOTE | 2020-03-13 21:40 | RAD REPORT ---
EXAM DESCRIPTION: RAD - Chest Single View - 03/13/2020 8:10 pm CLINICAL HISTORY: CHEST PAIN, right-sided arm and chest pain COMPARISON: November 12, 2019 TECHNIQUE: AP portable chest image was obtained 03/13/2020 8:10 pm . FINDINGS: Lungs are clear of acute finding. Minimal stranding in the right apex matches comparison. Heart and vasculature are normal. No measurable pleural effusion and no pneumothorax. No acute bony a bnormality seen. No acute aortic findings suspected. IMPRESSION: No acute cardiopulmonary process.
--- NOTE | 2020-03-14 00:02 | ER ---
Nurse's Notes [facility] Name: Zohaib Talamantes Age: 34 yrs Sex: Male : 1985 Arrival Date: 03/13/2020 Time: 17:27 Bed 13 Private MD: Diagnosis: Pain in right upper arm;Other chest pain Presentation: 03/13 17:36 Chief complaint: Patient states: right inside of arm pain radiates to his back, sv temporal head pain that radiates to his eyes started 45 mins ago. Coronavirus screen: Proceed with normal triage. Patient denies a cough. Patient denies shortness of breath or difficulty breathing. Patient denies measured and/or subjective temperature greater than 100.4F prior to today's visit. Patient denies travel on a cruise ship or to a country the [facility] currently lists as an affected area. Patient denies contact with known and/or suspected case of COVID-19. Ebola Screen: No symptoms or risks identified at this time. Risk Assessment: Do you want to hurt yourself or someone else? Patient reports no desire to harm self or others. Onset of symptoms was March 13, 2020. 17:36 Method Of Arrival: Ambulatory sv 17:36 Acuity: TOREY 3 sv 17:37 Initial Sepsis Screen: Does the patient meet any 2 criteria? No. Patient's initial sv sepsis screen is negative. Does the patient have a suspected source of infection? No. Patient's initial sepsis screen is negative. Historical: - Allergies: 17:37 Toradol; sv - PMHx: 17:37 collpse lung; hemorrhoids; irregular heart beat; sv - PSHx: 17:37 None; sv - Immunization history:: Adult Immunizations up to date. - Social history:: Smoking status: unknown. Screenin:38 Abuse screen: Denies threats or abuse. Denies injuries from another. Nutritional ls4 screening: No deficits noted. Tuberculosis screening: No symptoms or risk factors identified. Fall Risk None identified. Assessment: 20:37 General: Appears in no apparent distress. comfortable, Behavior is calm, cooperative. ls4 Pain: Complains of pain in right tricep Pain currently is 5 out of 10 on a pain scale. Quality of pain is described as. Neuro: Level of Consciousness is awake, alert, obeys commands, Oriented to person, place, time, situation, Foam Molder are equal bilaterally Moves all extremities. Gait is steady, Speech is normal, Facial symmetry appears normal, Pupils are PERRLA. Cardiovascular: Denies chest pain. Respiratory: Airway is patent Respiratory effort is even, unlabored, Respiratory pattern is regular. GI: No deficits noted. No signs and/or symptoms were reported involving the gastrointestinal system. : No deficits noted. No signs and/or symptoms were reported regarding the genitourinary system. EENT: No deficits noted. No signs and/or symptoms were reported regarding the EENT system. Derm: No deficits noted. No signs and/or symptoms reported regarding the dermatologic system. Skin is pink, warm \T\ dry. Musculoskeletal: No deficits noted. No signs and/or symptoms reported regarding the musculoskeletal system. 21:41 Reassessment: Patient appears in no apparent distress at this time. Patient and/or ls4 family updated on plan of care and expected duration. Pain level reassessed. Patient is alert, oriented x 3, equal unlabored respirations, skin warm/dry/pink. 22:55 Reassessment: Patient appears in no apparent distress at this time. Patient and/or ls4 family updated on plan of care and expected duration. Pain level reassessed. Patient is alert, oriented x 3, equal unlabored respirations, skin warm/dry/pink. 23:52 Reassessment: Patient appears in no apparent distress at this time. Patient and/or ls4 family updated on plan of care and expected duration. Pain level reassessed. Patient is alert, oriented x 3, equal unlabored respirations, skin warm/dry/pink. Vital Signs: 17:37 BP 114 / 73; Pulse 75; Resp 20; Temp 99.6; Pulse Ox 100% ; Weight 64.41 kg; Height 5 sv ft. 11 in. (180.34 cm); 21:30 BP 117 / 70; Pulse 71; Resp 16; Pulse Ox 99% on R/A; Pain 0/10; ls4 22:55 BP 114 / 68; Pulse 72; Resp 14; Pulse Ox 99% on R/A; Pain 0/10; ls4 23:51 BP 118 / 70; Pulse 70; Resp 14; Pulse Ox 99% on R/A; Pain 0/10; ls4 03/14 00:29 BP 129 / 97; Pulse 85; Resp 16; Temp 97.9(O); Pulse Ox 100% on R/A; Pain 0/10; ls4 03/13 17:37 Body Mass Index 19.80 (64.41 kg, 180.34 cm) sv 03/13 21:30 FLACC 0 ls4 23:51 flacc 0 ls4 ED Course: 17:27 Patient arrived in ED. ag5 17:37 Triage completed. sv 17:37 Arm band placed on. sv 19:01 Patient has correct armband on for positive identification. Bed in low position. Call ls4 light in reach. Side rails up X 1. 19:01 Pulse ox on. NIBP on. ls4 19:02 Olga Murdock, MARIA E is Primary Nurse. ls4 19:04 Marquez Lira PA is PHCP. cp 19:04 Sam Cox MD is Attending Physician. cp 19:51 Inserted Missed attempt(s): 20 gauge in left antecubital area. dh4 20:10 XRAY Chest (1 view) In Process Unspecified. EDMS 20:10 XRAY Humerus RIGHT In Process Unspecified. EDMS 20:39 No provider procedures requiring assistance completed. Inserted saline lock: 20 gauge ls4 in right antecubital area, using aseptic technique. 23:36 Awaiting: ultrasound. ls4 23:56 US Extremity Venous Unilateral Ltd In Process Unspecified. EDMS 03/14 00:30 IV discontinued, intact, bleeding controlled, No redness/swelling at site. Pressure ls4 dressing applied. Administered Medications: 03/13 20:21 Drug: fentaNYL (PF) 25 mcg Route: IVP; Site: right antecubital; ls4 21:00 Follow up: Response: No adverse reaction; Marked relief of symptoms ls4 Outcome: 03/14 00:02 Discharge ordered by . cp 00:30 Discharged to home ambulatory. ls4 00:30 Condition: good 00:30 Discharge instructions given to patient, family, Instructed on discharge instructions, follow up and referral plans. medication usage, safety practices, Demonstrated understanding of instructions, follow-up care, medications, Prescriptions given X 1. 00:30 Patient left the ED. ls4 Signatures: Dispatcher [employer] Jasmyne Infante RN RN Marquez Lira PA PA cp Stewart, Lisa, RN RN ls4 Whit Zapata [facility] Anthony Ordaz 4 Corrections: (The following items were deleted from the chart) 03/13 17:40 17:37 Pulse 75bpm; Resp 20bpm; Pulse Ox 100%; Temp 99.6F; 64.41 kg; Height 5 ft. 11 sv in.; BMI: 19.8; sv
--- NOTE | 2020-03-14 00:03 | EDPHYS ---
Physician Documentation [facility] Name: Zohaib Talamantes Age: 34 yrs Sex: Male : 1985 Arrival Date: 03/13/2020 Time: 17:27 Bed 13 Private MD: ED Physician Sam Cox HPI: 03/13 19:25 This 34 yrs old Male presents to ER via Ambulatory with complaints of Arm cp Pain. 19:25 The patient or guardian complains of pain, that is acute. The complaints affect the cp right upper arm. 19:25 Context: resulted from unknown cause. Onset: The symptoms/episode began/occurred 1 cp hour(s) ago. 19:25 Treatment prior to arrival includes: no previous treatment. Associated signs and cp symptoms: Pertinent positives: headache, chest pain, painful ROM, Pertinent negatives: decreased range of motion, numbness, tingling, weakness, injury. Severity of symptoms: in the emergency department the symptoms are unchanged. Patient reports pain started to right upper arm after getting off work today. Historical: - Allergies: 17:37 Toradol; sv - PMHx: 17:37 collpse lung; hemorrhoids; irregular heart beat; sv - PSHx: 17:37 None; sv - Immunization history:: Adult Immunizations up to date. - Social history:: Smoking status: unknown. ROS: 19:30 MS/extremity: Positive for pain, tenderness, of the medial aspect right upper arm, cp Negative for injury or acute deformity, decreased range of motion. 19:30 Eyes: Negative for injury, pain, redness, and discharge. cp 19:30 Constitutional: Negative for body aches, chills, fever, poor PO intake. 19:30 ENT: Negative for ear pain, sore throat, difficulty swallowing, difficulty handling secretions. 19:30 Neck: Negative for injury or acute deformity, pain with movement, pain at rest, stiffness, tenderness, bony tenderness. 19:30 Cardiovascular: Positive for chest pain, of the right upper chest, Negative for edema, palpitations. 19:30 Respiratory: Negative for cough, shortness of breath, wheezing. 19:30 Abdomen/GI: Negative for abdominal pain, nausea, vomiting, and diarrhea. 19:30 Back: Negative for pain at rest, pain with movement, radiated pain. 19:30 Skin: Negative for rash. 19:30 Neuro: Negative for altered mental status, headache, weakness. 19:30 All other systems are negative. Exam: 19:40 Constitutional: The patient appears in no acute distress, alert, awake, cp non-diaphoretic, non-toxic, well developed, well nourished, uncomfortable. 19:40 Head/Face: Normocephalic, atraumatic. cp 19:40 Eyes: Periorbital structures: appear normal, Conjunctiva: normal, no exudate, no injection, Sclera: no appreciated abnormality, Lids and lashes: appear normal, bilaterally. 19:40 ENT: External ear(s): are unremarkable, Nose: is normal, Mouth: Lips: moist, Oral mucosa: pink and intact, moist, Posterior pharynx: is normal, airway is patent, no erythema, no exudate. 19:40 Neck: C-spine: vertebral tenderness, is not appreciated, crepitus, is not appreciated, ROM/movement: is normal, is supple, without pain, no range of motions limitations, no nuchal rigidity. 19:40 Chest/axilla: Inspection: normal, Palpation: crepitus, is not appreciated, tenderness, that is moderate, of the right clavicle and anterior aspect of right upper chest, that partially reproduces the patient's complaints. 19:40 Cardiovascular: Rate: normal, Rhythm: regular, Heart sounds: murmur, not appreciated, rub, not appreciated, gallop, not appreciated, JVD: is not appreciated. 19:40 Respiratory: the patient does not display signs of respiratory distress, Respirations: normal, no use of accessory muscles, no retractions, labored breathing, is not present, Breath sounds: are clear throughout, no decreased breath sounds, no stridor, no wheezing. 19:40 Abdomen/GI: Inspection: abdomen appears normal, Palpation: abdomen is soft and non-tender, in all quadrants. 19:40 Back: pain, is absent, ROM is normal. 19:40 Musculoskeletal/extremity: Extremities: grossly normal except: noted in the medial aspect right upper arm: pain, tenderness, ROM: limited passive range of motion due to pain, in the right upper arm, Pulses: noted to be 2+ in the right radial artery and left radial artery, Sensation intact. 19:40 Skin: cellulitis, is not appreciated, no rash present. Vital Signs: 17:37 BP 114 / 73; Pulse 75; Resp 20; Temp 99.6; Pulse Ox 100% ; Weight 64.41 kg; Height 5 sv ft. 11 in. (180.34 cm); 21:30 BP 117 / 70; Pulse 71; Resp 16; Pulse Ox 99% on R/A; Pain 0/10; ls4 22:55 BP 114 / 68; Pulse 72; Resp 14; Pulse Ox 99% on R/A; Pain 0/10; ls4 23:51 BP 118 / 70; Pulse 70; Resp 14; Pulse Ox 99% on R/A; Pain 0/10; ls4 03/14 00:29 BP 129 / 97; Pulse 85; Resp 16; Temp 97.9(O); Pulse Ox 100% on R/A; Pain 0/10; ls4 03/13 17:37 Body Mass Index 19.80 (64.41 kg, 180.34 cm) sv 03/13 21:30 FLACC 0 ls4 23:51 flacc 0 ls4 MDM: 19:05 Patient medically screened. cp 19:30 Differential diagnosis: dislocation, tendonitis, DVT, pneumothorax. cp 20:01 Test interpretation: by ED physician or midlevel provider: xrays of right humerus cp negative for fracture and chest xray negative for acute findings. 23:50 Data reviewed: vital signs, nurses notes, lab test result(s), EKG, radiologic studies, cp plain films, ultrasound, and as a result, I will discharge patient. ED course: US tech reports RUE negative for DVT. 03/14 00:00 Counseling: I had a detailed discussion with the patient and/or guardian regarding: the cp historical points, exam findings, and any diagnostic results supporting the discharge/admit diagnosis, lab results, radiology results, the need for outpatient follow up, a family practitioner, to return to the emergency department if symptoms worsen or persist or if there are any questions or concerns that arise at home. 00:00 Response to treatment: the patient's symptoms have markedly improved after treatment, cp and as a result, I will discharge patient. ED course: VSS. Pain improved. Will discharge to home for continued monitoring. 03/13 19:21 Order name: Basic Metabolic Panel; Complete Time: 20:57 cp 03/13 20:58 Interpretation: Normal except: CL 108. cp 03/13 19:21 Order name: CBC with Diff; Complete Time: 20:57 cp 03/13 20:58 Interpretation: Normal except: RBC 3.90; HGB 12.7; HCT 37.2. cp 03/13 19:21 Order name: LFT's; Complete Time: 20:57 cp 03/13 19:21 Order name: Magnesium; Complete Time: 20:57 cp 03/13 19:21 Order name: PT-INR; Complete Time: 20:57 cp 03/13 19:21 Order name: Troponin (emerg Dept Use Only); Complete Time: 20:57 cp 03/13 19:21 Order name: XRAY Chest (1 view); Complete Time: 23:50 cp 03/13 23:50 Interpretation: Report review. cp 03/13 19:21 Order name: US Extremity Venous Unilateral Ltd cp 03/13 19:21 Order name: XRAY Humerus RIGHT; Complete Time: 23:50 cp 03/13 23:50 Interpretation: Report reviewed. cp 03/13 19:21 Order name: Cardiac monitoring; Complete Time: 20:23 cp 03/13 19:21 Order name: EKG - Nurse/Tech; Complete Time: 20:23 cp 03/13 19:21 Order name: IV Saline Lock; Complete Time: 20:23 cp 03/13 19:21 Order name: Labs collected and sent; Complete Time: 20:36 cp 03/13 19:21 Order name: O2 Per Protocol; Complete Time: 20:36 cp 03/13 19:21 Order name: O2 Sat Monitoring; Complete Time: 20:36 cp Administered Medications: 03/13 20:21 Drug: fentaNYL (PF) 25 mcg Route: IVP; Site: right antecubital; ls4 21:00 Follow up: Response: No adverse reaction; Marked relief of symptoms ls4 Disposition: 03/14 09:05 Co-signature as Attending Physician, Sam Cox MD I agree with the assessment and kdr plan of care. Disposition: 03/14/20 00:02 Discharged to Home. Impression: Pain in right upper arm, Other chest pain. - Condition is Stable. - Discharge Instructions: Chest Wall Pain, Musculoskeletal Pain. - Prescriptions for Cyclobenzaprine 10 mg Oral Tablet - take 1 tablet by ORAL route every 8 hours As needed no driving while taking medication; 20 tablet. Tramadol 50 mg Oral Tablet - take 1 tablet by ORAL route every 8 hours as needed; 12 tablet. - Medication Reconciliation Form, Thank You Letter, Antibiotic Education, Prescription Opioid Use, Work release form form. - Follow up: Private Physician; When: 2 - 3 days; Reason: Recheck today's complaints. - Problem is new. - Symptoms have improved. Signatures: Dispatcher [employer] Jasmyne Infante RN RN sv Sam Cox MD MD [facility] Marquez Lira PA PA cp Olga Murdock RN RN ls4 Corrections: (The following items were deleted from the chart) 00:30 00:02 03/14/2020 00:02 Discharged to Home. Impression: Pain in right upper arm; Other ls4 chest pain. Condition is Stable. Forms are Medication Reconciliation Form, Thank You Letter, Antibiotic Education, Prescription Opioid Use. Follow up: Private Physician; When: 2 - 3 days; Reason: Recheck today's complaints. Problem is new. Symptoms have improved. cp
[2020-03-14 00:42] VITALS: BP 129/97; TEMP 97.9; O2SAT 100
--- NOTE | 2020-03-14 07:34 | RAD REPORT ---
EXAM DESCRIPTION: USExtremity Venous Uni Ltd03/13/2020 11:55 pm CLINICAL HISTORY: Right arm pain COMPARISON: None FINDINGS: The right internal jugular, right subclavian, right cephalic, right axillary, right brach ial, right basilic, right ulnar and right radial veins are generally compressible and demonstrate au gmentation. Doppler demonstrates good flow. IMPRESSION: No evidence of thrombus within the veins of the right upper extremity
== END 2020-03-14 00:30 | disposition home or self-care (01) ==
LOC: ER 17:25
DX: M79.621 Pain in right upper arm (principal); R07.89 Other chest pain
CPT/HCPCS: 36415; 71045; 80048; 80076; 83735; 84484; 85025; 85610; 93971; 96374; 99284; J3010

== ENCOUNTER 2020-07-10 16:11 | Emergency (ER) | payer SELFPAY, OTHER ==
--- OUTSIDE RECORDS SUMMARY | 2020-07-10 16:13 | XMS REPORT | Clinical Summary ---
:1985 Author Organization [facility] Address [address] [place] [address] Care Team Providers Name Role Phone Asked, Pcp Primary Care Provider Unavailable Allergies No Known Active Allergies Medications Medication Sig Dispensed Refills Start [...] Not on file Last Filed Vital Signs Not on file Plan of Treatment Health Maintenance Due Date Last Done Comments INFLUENZA VACCINE 05/11/2020 Results Not on fileafter 07/10/2019 Advance Directives For more information, please contact: [phone] Type Date Recorded Patient Infectious Disease Technician Explanati on Advance Directives, Living Will and Medical Power of Women'S Studies Professor
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
[2020-07-10] MEDS ORDERED: KETOROLAC 30 MG/ML INJ ONE (17:40)
[2020-07-10] MEDS ORDERED: NA CHLORIDE 0.9% 1,000 ML ONE (17:40)
[2020-07-10 17:54] LABS: Absolute Lymphocytes (CBC) 2.2 K/uL (0.7-4.9); Basophils % 0.9 % (0-1.3); Hematocrit 36.8 % (39.6-49.0); Lymphocytes % 30.3 % (15.3-44.8); MPV 7.7 fL (7.6-11.3); RBC Red Blood Cell Count 3.93 M/uL (4.33-5.43)
[2020-07-10] MEDS ORDERED: MORPHINE 2 MG/ML SYR ONE (18:00)
[2020-07-10] MEDS ORDERED: ONDANSETRON 4 MG/2 ML VIAL ONE (18:00)
[2020-07-10 18:10] LABS: ALT/SGPT 19 U/L (12-78); AST/SGOT 10 U/L (15-37); Albumin 3.8 g/dL (3.4-5.0); Alkaline Phosphatase 58 U/L (45-117); BUN Blood Urea Nitrogen 15 mg/dL (7-18); Bicarbonate 27 mmol/L (21-32); Bilirubin Total 0.2 mg/dL (0.2-1.0); Glucose Level 88 mg/dL (74-106); Potassium 3.9 mmol/L (3.5-5.1); Protein, Total 7.2 g/dL (6.4-8.2); Sodium Level 144 mmol/L (136-145)
--- NOTE | 2020-07-10 18:28 | RAD REPORT ---
EXAM DESCRIPTION: RAD - Chest Single View - 07/10/2020 5:51 pm CLINICAL HISTORY: Chest pain;Cough COMPARISON: Portable March 13 TECHNIQUE: AP portable chest image was obtained 07/10/2020 5:51 pm . FINDINGS: Lungs are clear. Heart and vasculature are normal. No measurable pleural effusion and no p neumothorax. No acute bony abnormality seen. No acute aortic findings. Clothing artifacts overlie the lower chest. IMPRESSION: No acute cardiopulmonary process.
[2020-07-10] MEDS ORDERED: CEFTRIAXONE/SWI 1gm 1 GM/10 ML SYR ONE (18:35)
--- NOTE | 2020-07-10 18:56 | EDPHYS ---
Physician Documentation [facility] Name: Zohaib Talamantes Age: 34 yrs Sex: Male : 1985 Arrival Date: 07/10/2020 Time: 16:19 Bed 7 Private MD: ED Physician Sam Cox HPI: 07/10 17:35 This 34 yrs old Male presents to ER via Ambulatory with complaints of kdr Headache, Back Pain, Shortness Of Breath. 17:35 The patient states that has has been working with a co-worker who's recently kdr tested positive of Covid. The co-worker had developed similar symptoms and had continued to come to work until today when he apparently became ill and did not come in. The patient has been working with this person in close proximity for days and is not concerned that he is becoming ill and possibly has COVIDvirus. He now c/o generalized myalgias, sore throat, SEAMAN and neck/back pain. he denies cough, congestion or any othe r. 18:02 Onset: The symptoms/episode began/occurred gradually, today. Severity of symptoms: At kdr their worst the symptoms were mild moderate in the emergency department the symptoms are unchanged. The patient has not experienced similar symptoms in the past. The patient has not recently seen a physician. Historical: - Allergies: 16:29 Toradol; ll1 - PMHx: 16:29 collpse lung; hemorrhoids; irregular heart beat; ll1 - PSHx: 16:29 None; ll1 - Immunization history:: Flu vaccine is not up to date. - Social history:: Smoking status: Patient reports the use of cigarette tobacco products, smokes one-half pack cigarettes per day. ROS: 18:02 Constitutional: Negative for fever and weight loss - he has had chills Eyes: Negative kdr for injury, pain, redness, and discharge, Neck: Negative for injury, pain, and swelling, Cardiovascular: Negative for chest pain, palpitations, and edema, Respiratory: Negative for shortness of breath, cough, wheezing, and pleuritic chest pain, Abdomen/GI: Negative for abdominal pain, nausea, vomiting, diarrhea, and constipation, Back: Negative for injury and pain, : Negative for injury, bleeding, discharge, and swelling, MS/Extremity: Negative for injury and deformity - diffuse myalgia Skin: Negative for injury, rash, and discoloration, Psych: Negative for depression, anxiety, suicide ideation, homicidal ideation, and hallucinations, Allergy/Immunology: Negative for hives, rash, and allergies, Endocrine: Negative for neck swelling, polydipsia, polyuria, polyphagia, and marked weight changes, Hematologic/Lymphatic: Negative for swollen nodes, abnormal bleeding, and unusual bruising. 18:02 Neuro: Positive for headache. Exam: 18:25 Constitutional: This is a well developed, well nourished patient who is awake, alert, kdr and in no acute distress. Head/Face: Normocephalic, atraumatic. Eyes: Pupils equal round and reactive to light, extra-ocular motions intact. Lids and lashes normal. Conjunctiva and sclera are non-icteric and not injected. Cornea within normal limits. Periorbital areas with no swelling, redness, or edema. Chest/axilla: Normal chest wall appearance and motion. Nontender with no deformity. No lesions are appreciated. Cardiovascular: Regular rate and rhythm with a normal S1 and S2. No gallops, murmurs, or rubs. Normal PMI, no JVD. No pulse deficits. Respiratory: Lungs have equal breath sounds bilaterally, clear to auscultation and percussion. No rales, rhonchi or wheezes noted. No increased work of breathing, no retractions or nasal flaring. Abdomen/GI: Soft, non-tender, with normal bowel sounds. No distension or tympany. No guarding or rebound. No evidence of tenderness throughout. Back: No spinal tenderness. No costovertebral tenderness. Full range of motion. Skin: Warm, dry with normal turgor. Normal color with no rashes, no lesions, and no evidence of cellulitis. MS/ Extremity: Pulses equal, no cyanosis. Neurovascular intact. Full, normal range of motion. Psych: Awake, alert, with orientation to person, place and time. Behavior, mood, and affect are within normal limits. 18:25 Neck: External neck: is normal, C-spine: appears grossly normal, no vertebral tenderness, Thyroid: appears normal, Trachea: is midline with no obvious abnormalities, ROM/movement: pain, that is mild, with extension, with flexion, limited range of motion, that is mild, with flexion, with extension, Meningeal signs: Brudzinski's sign is negative, Kernig's sign is present. Vital Signs: 16:27 BP 105 / 82; Pulse 76; Resp 18; Temp 98.7; Pulse Ox 100% ; Weight 61.69 kg; Height 5 ll1 ft. 11 in. (180.34 cm); Pain 9/10; 18:16 BP 112 / 69; Pulse 55; Resp 18; Pulse Ox 99% on R/A; Pain 7/10; em 19:11 BP 99 / 67; Pulse 60; Resp 18; Pulse Ox 100% on R/A; wh 16:27 Body Mass Index 18.97 (61.69 kg, 180.34 cm) ll1 MDM: 18:00 Data reviewed: vital signs, nurses notes. ED course: The patient is currently refusing kdr LP. 18:55 Patient medically screened. kdr 07/10 17:16 Order name: CBC with Diff; Complete Time: 18:28 kdr 07/10 17:16 Order name: Comprehensive Metabolic Panel; Complete Time: 18:28 kdr 07/10 17:16 Order name: Blood Culture Adult (2) kdr 07/10 17:16 Order name: COVID-19 kdr 07/10 17:16 Order name: Strep; Complete Time: 18:51 kdr 07/10 17:16 Order name: Flu; Complete Time: 18:51 kdr 07/10 17:16 Order name: CXR XRAY; Complete Time: 18:51 kdr 07/10 18:30 Order name: Throat Culture EDMS Administered Medications: 17:50 Drug: NS 0.9% 1000 ml Route: IV; Rate: 1 bolus; Site: right antecubital; em 19:11 Follow up: Response: No adverse reaction; IV Status: Completed infusion 17:50 Drug: Zofran (Ondansetron) 4 mg Route: IVP; Site: right antecubital; em 18:54 Follow up: Response: No adverse reaction em 17:52 Drug: morphine 2 mg Route: IVP; Site: right antecubital; em 18:54 Follow up: Response: No adverse reaction em 17:56 Not Given (Physician Discretion): TORadol - Ketorolac 15 mg IVP once em 18:32 Drug: Rocephin - (cefTRIAXone) 1 grams Route: IVPB; Infused Over: 30 mins; Site: right em antecubital; 18:54 Follow up: Response: No adverse reaction; IV Status: Completed infusion; IV Intake: 10mlem Disposition: 07/10/20 18:55 Discharged to Home. Impression: Viral infection, unspecified, Headache, Shortness of breath. - Condition is Stable. - Discharge Instructions: General Headache Without Cause, Shortness of Breath, [id number], Cough, Adult, Elqn-ha-Ctxf, Viral Respiratory Infection, Lwnn-Yc-Lztu. - Prescriptions for Zofran 4 mg Oral Tablet - take 1 tablet by ORAL route every 4-6 hours As needed; 12 tablet. Tessalon Perles 100 mg Oral Capsule - take 1 capsule by ORAL route every 8 hours As needed; 15 capsule. Tramadol 50 mg Oral Tablet - take 1 tablet by ORAL route every 8 hours as needed; 12 tablet. Zithromax Z- Tru 250 mg Oral Tablet - take 1 tablet by ORAL route as directed for 5 days Day 1 - take two (2) tablets one time. Day 2, 3, 4 , 5 take one (1) tablet once daily.; 6 tablet. Albuterol Sulfate 90 mcg/actuation - inhale 1-2 puff by INHALATION route every 4-6 hours; 1 Inhaler. - Medication Reconciliation Form, Thank You Letter, Antibiotic Education, Prescription Opioid Use, Work release form form. - Follow up: Private Physician; When: 2 - 3 days; Reason: If symptoms return, Further diagnostic work-up, Recheck today's complaints, Continuance of care, Re-evaluation by your physician. - Problem is new. - Symptoms have improved. Signatures: Dispatcher [employer] Sam Estrada MD MD [facility] Shorty Willett, RN RN Higinio Joseph Edy Viera RN RN ll1 Corrections: (The following items were deleted from the chart) 19:11 18:55 07/10/2020 18:55 Discharged to Home. Impression: Viral infection, unspecified; wh Headache; Shortness of breath. Condition is Stable. Forms are Medication Reconciliation Form, Thank You Letter, Antibiotic Education, Prescription Opioid Use. Follow up: Private Physician; When: 2 - 3 days; Reason: If symptoms return, Further diagnostic work-up, Recheck today's complaints, Continuance of care, Re-evaluation by your physician. Problem is new. Symptoms have improved. kdr
--- NOTE | 2020-07-10 18:56 | ER ---
Nurse's Notes [facility] Name: Zohaib Talamantes Age: 34 yrs Sex: Male : 1985 Arrival Date: 07/10/2020 Time: 16:19 Bed 7 Private MD: Diagnosis: Viral infection, unspecified;Headache;Shortness of breath Presentation: 07/10 16:27 Chief complaint: Patient states: SEAMAN, neck and back pain, body aches, fatigue for 1 day. ll1 Fever 99.8 at home. Coronavirus screen: Client denies travel out of the [place] in the last 14 days. chills, cough unrelated to allergies, difficulty breathing, fatigue, headache, shortness of breath, Client presents with at least one sign or symptom that may indicate coronavirus-19. Standard/surgical mask placed on the client. Ebola Screen: Patient denies travel to an Ebola-affected area in the 21 days before illness onset. Initial Sepsis Screen: Does the patient meet any 2 criteria? No. Patient's initial sepsis screen is negative. Risk Assessment: Do you want to hurt yourself or someone else? Patient reports no desire to harm self or others. Onset of symptoms was July 10, 2020. 16:27 Method Of Arrival: Ambulatory ll1 16:27 Acuity: TOREY 3 ll1 19:05 Initial Sepsis Screen: Does the patient have a suspected source of infection? Yes: wh Productive cough/pneumonia. Triage Assessment: 19:05 Headache History: The patient has had previous headaches. General: Appears in no wh apparent distress. Pain: Pain began suddenly, Also complains of nausea. Historical: - Allergies: 16:29 Toradol; ll1 - PMHx: 16:29 collpse lung; hemorrhoids; irregular heart beat; ll1 - PSHx: 16:29 None; ll1 - Immunization history:: Flu vaccine is not up to date. - Social history:: Smoking status: Patient reports the use of cigarette tobacco products, smokes one-half pack cigarettes per day. Screenin:40 Abuse screen: Denies threats or abuse. Nutritional screening: No deficits noted. em Tuberculosis screening: No symptoms or risk factors identified. Fall Risk None identified. Assessment: 17:25 General: Appears in no apparent distress. uncomfortable, Behavior is calm, cooperative, em appropriate for age, Reports fever for 0-12 hours. Pain: Complains of pain in top of head, left yarsani, right yarsani, chest and neck Pain currently is 9 out of 10 on a pain scale. Neuro: Level of Consciousness is awake, alert, obeys commands, Oriented to person, place, time, situation, Appropriate for age. Cardiovascular: Capillary refill < 3 seconds Patient's skin is warm and dry. Respiratory: Airway is patent Respiratory effort is even, unlabored, Respiratory pattern is regular, symmetrical, Denies cough. Derm: Skin is intact, is healthy with good turgor, Skin is pink, warm \T\ dry. Musculoskeletal: Capillary refill < 3 seconds, Range of motion: intact in all extremities. 18:16 Reassessment: Patient appears in no apparent distress at this time. Patient and/or em family updated on plan of care and expected duration. Pain level reassessed. Patient is alert, oriented x 3, equal unlabored respirations, skin warm/dry/pink. ambulated pt without O2, tolerated well reports feeling the same. 18:20 Reassessment: Patient appears in no apparent distress at this time. pt currently em refuses the lumbar tap. Vital Signs: 16:27 BP 105 / 82; Pulse 76; Resp 18; Temp 98.7; Pulse Ox 100% ; Weight 61.69 kg; Height 5 ll1 ft. 11 in. (180.34 cm); Pain 9/10; 18:16 BP 112 / 69; Pulse 55; Resp 18; Pulse Ox 99% on R/A; Pain 7/10; em 19:11 BP 99 / 67; Pulse 60; Resp 18; Pulse Ox 100% on R/A; wh 16:27 Body Mass Index 18.97 (61.69 kg, 180.34 cm) ll1 ED Course: 16:19 Patient arrived in ED. mr 16:28 Sam Cox MD is Attending Physician. kdr 16:28 Triage completed. ll1 16:29 Arm band placed on Patient placed in an exam room, on a stretcher. ll1 16:31 Shorty Willett, MARIA E is Primary Nurse. em 16:40 Patient has correct armband on for positive identification. Placed in gown. Bed in low em position. Pulse ox on. NIBP on. 17:40 Inserted saline lock: 20 gauge in right antecubital area, using aseptic technique. em Blood collected. 17:40 Initial lab(s) drawn, by me, sent to lab. First set of blood cultures drawn by me, Flu em and/or RSV swab sent to lab. Strep swab sent to lab. 17:49 CXR XRAY In Process Unspecified. EDMS 19:09 No provider procedures requiring assistance completed. IV discontinued, intact, wh bleeding controlled, No redness/swelling at site. Administered Medications: 17:50 Drug: NS 0.9% 1000 ml Route: IV; Rate: 1 bolus; Site: right antecubital; em 19:11 Follow up: Response: No adverse reaction; IV Status: Completed infusion wh 17:50 Drug: Zofran (Ondansetron) 4 mg Route: IVP; Site: right antecubital; em 18:54 Follow up: Response: No adverse reaction em 17:52 Drug: morphine 2 mg Route: IVP; Site: right antecubital; em 18:54 Follow up: Response: No adverse reaction em 17:56 Not Given (Physician Discretion): TORadol - Ketorolac 15 mg IVP once em 18:32 Drug: Rocephin - (cefTRIAXone) 1 grams Route: IVPB; Infused Over: 30 mins; Site: right em antecubital; 18:54 Follow up: Response: No adverse reaction; IV Status: Completed infusion; IV Intake: 10mlem Intake: 17:00 IV: 1000ml; Total: 1000ml. em 18:54 IV: 10ml; Total: 1010ml. em Outcome: 18:55 Discharge ordered by MD. kdr 19:10 Discharged to home ambulatory. 19:10 Condition: stable 19:10 Discharge instructions given to patient, Instructed on discharge instructions, follow up and referral plans. no drinking with medication, no driving heavy equipment, medication usage, POC Demonstrated understanding of instructions, follow-up care, medications, POC Prescriptions given X X5 19:11 Patient left the ED. Addendum: 07/12/2020 18:20 Addendum: COVID-19 Result: Negative result given to RN to notify pt. Notified pt of i w negative COVID 19 swab results. Pt advised that even with a negative test result they should remain in isolation until symptom free for 3 days without medication. Pt also advised to return to the ED for worsening symptoms. Signatures: Dispatcher [employer] Sam Estrada MD MD [facility], Nicolette mr Shorty Willett, Carlie Che RN, RN RN iw [place], Winsy wh Lewis, Lynsay, RN RN ll1
[2020-07-10 19:24] VITALS: TEMP 98.7
[2020-07-10 19:27] VITALS: BP 99/67; O2SAT 100
== END 2020-07-10 19:11 | disposition home or self-care (01) ==
LOC: ER 16:11
DX: B34.9 Viral infection, unspecified (principal); Z20.828 Contact with and (suspected) exposure to other viral communicable diseases; R06.02 Shortness of breath; F17.210 Nicotine dependence, cigarettes, uncomplicated; Z88.5 Allergy status to narcotic agent
CPT/HCPCS: 36415; 71045; 80053; 85025; 87040; 87070; 87081; 87804; 96361; 96365; 96375; 99284; J0696; J2270; J2405; J7030; U0002

== ENCOUNTER 2020-12-20 13:05 | Emergency (ER) | payer SELFPAY ==
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
--- NOTE | 2020-12-20 13:25 | ER ---
Nurse's Notes [facility] Name: Zohaib Talamantes Age: 35 yrs Sex: Male : 1985 Arrival Date: 12/20/2020 Time: 13:07 Bed Waiting Private MD: Diagnosis: ED Course: 12/20 13:07 Patient arrived in ED. ds1 13:24 Barry Price MD is Attending Physician. aa5 Administered Medications: No medications were administered Outcome: 13:24 Patient left the ED. aa5 Signatures: Jalyn Moss ds1 Jade Montejo, RN RN aa5
== END 2020-12-20 13:24 | disposition left against medical advice (07) ==
LOC: ER 13:05
DX: R69 Illness, unspecified (principal); Z53.21 Procedure and treatment not carried out due to patient leaving prior to being seen by health care provider

== ENCOUNTER 2021-12-18 15:39 | Emergency (ER) | payer SELFPAY ==
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
[2021-12-18] MEDS ORDERED: HYDROCODONE/APAP 5/325 MG TAB ONE (17:31)
[2021-12-18 18:47] VITALS: TEMP 97.9; O2SAT 100
[2021-12-18 18:51] VITALS: BP 134/69
== END 2021-12-18 17:43 | disposition home or self-care (01) ==
LOC: ER 15:39
DX: S92.322A Displaced fracture of second metatarsal bone, left foot, initial encounter for closed fracture (principal); S90.32XA Contusion of left foot, initial encounter; W23.0XXA Caught, crushed, jammed, or pinched between moving objects, initial encounter; Z88.5 Allergy status to narcotic agent; Z88.6 Allergy status to analgesic agent
CPT/HCPCS: 99283

== ENCOUNTER 2022-01-04 12:43 | Emergency (ER) | payer SELFPAY ==
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
--- NOTE | 2022-01-04 13:39 | RAD REPORT ---
EXAM DESCRIPTION: RAD - Foot Left 3 View - 01/04/2022 1:20 pm CLINICAL HISTORY: PAIN COMPARISON: Foot Left 3 View dated 12/18/2021 FINDINGS/IMPRESSION: Comminuted fracture at the proximal diaphysis of the second metatarsal with unc hanged alignment. No new fractures.
--- NOTE | 2022-01-04 14:27 | ER ---
Nurse's Notes [facility] Name: Zohaib Talamantes Age: 36 yrs Sex: Male : 1985 Arrival Date: 01/04/2022 Time: 12:45 Bed 12 Private MD: Diagnosis: Comminuted fracture proximal diaphysis of second metatarsal Presentation: 01/04 12:50 Chief complaint: Patient states: "I broke my left foot a couple week ago, and today I ab2 tripped over my dog and bent it backwards, now im in severe pain.". Coronavirus screen: Vaccine status: Patient reports being unvaccinated. Client denies travel out of the [place] in the last 14 days. At this time, the client does not indicate any symptoms associated with coronavirus-19. Ebola Screen: Patient negative for fever greater than or equal to 101.5 degrees Fahrenheit, and additional compatible Ebola Virus Disease symptoms Patient denies exposure to infectious person. Patient denies travel to an Ebola-affected area in the 21 days before illness onset. No symptoms or risks identified at this time. Initial Sepsis Screen: Does the patient meet any 2 criteria? No. Patient's initial sepsis screen is negative. Does the patient have a suspected source of infection? No. Patient's initial sepsis screen is negative. Risk Assessment: Do you want to hurt yourself or someone else? Patient reports no desire to harm self or others. Onset of symptoms is unknown. 12:50 Method Of Arrival: Ambulatory ab2 12:50 Acuity: TOREY 4 ab2 Triage Assessment: 12:52 General: Appears in no apparent distress. uncomfortable, Behavior is calm, cooperative, ab2 appropriate for age. Pain: Complains of pain in left foot Pain currently is 9 out of 10 on a pain scale. Historical: - Allergies: 12:51 Ibuprofen; ab2 12:51 Toradol; ab2 - PMHx: 12:51 collpse lung; hemorrhoids; irregular heart beat; ab2 - PSHx: 12:51 None; ab2 - Immunization history:: Adult Immunizations up to date. - Social history:: Smoking status: Patient denies any tobacco usage or history of. Screenin:38 Abuse screen: Denies threats or abuse. Denies injuries from another. Nutritional iw screening: No deficits noted. Tuberculosis screening: No symptoms or risk factors identified. Fall Risk None identified. Assessment: 14:38 Reassessment: Patient appears in no apparent distress at this time. Patient and/or iw family updated on plan of care and expected duration. Pain level reassessed. Patient is alert, oriented x 3, equal unlabored respirations, skin warm/dry/pink. Vital Signs: 12:50 BP 116 / 85; Pulse 101; Resp 16; Temp 97.7(TE); Pulse Ox 98% on R/A; Weight 63.5 kg; ab2 Height 5 ft. 11 in. (180.34 cm); Pain 9/10; 12:50 Body Mass Index 19.53 (63.50 kg, 180.34 cm) ab2 ED Course: 12:45 Patient arrived in ED. mr 12:51 Triage completed. ab2 12:52 Arm band placed on right wrist. ab2 12:56 Jovi Hobbs NP is PHCP. pm1 12:56 Marquez Garcia MD is Attending Physician. pm1 13:22 Foot Left 3 View XRAY In Process Unspecified. EDMS 14:34 Carlie Reeder, RN is Primary Nurse. iw 14:38 No provider procedures requiring assistance completed. Patient did not have IV access iw during this emergency room visit. Administered Medications: No medications were administered Outcome: 14:27 Discharge ordered by . pm1 14:38 Discharged to home ambulatory. iw 14:38 Condition: good 14:38 Discharge instructions given to patient, Instructed on discharge instructions, follow up and referral plans. Demonstrated understanding of instructions, follow-up care. 14:38 Patient left the ED. iw Signatures: Dispatcher [employer] EDRI Nicolette Lopez mr aCrlie Reeder RN RN iw Jovi Hobbs NP ANALYST BUSINESS ANALYSIS pm1 Laron Fernandez ab2
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
[2022-01-04 14:49] VITALS: BP 116/85; TEMP 97.7; O2SAT 98
== END 2022-01-04 14:38 | disposition home or self-care (01) ==
LOC: ER 12:43
DX: S92.322A Displaced fracture of second metatarsal bone, left foot, initial encounter for closed fracture (principal); W01.0XXA Fall on same level from slipping, tripping and stumbling without subsequent striking against object, initial encounter; Y93.9 Activity, unspecified; Y92.019 Unspecified place in single-family (private) house as the place of occurrence of the external cause; Z88.8 Allergy status to other drugs, medicaments and biological substances
CPT/HCPCS: 99283

== ENCOUNTER 2023-02-05 16:55 | Emergency (ER) | payer BC ==
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
--- NOTE | 2023-02-05 17:08 | EDPHYS ---
Physician Documentation [facility] Name: Zoahib Talamantes Age: 37 yrs Sex: Male : 1985 Arrival Date: 02/05/2023 Time: 16:55 Bed IW4 Private MD: ED Physician Иван Vann HPI: 02/05 17:22 This 37 yrs old Male presents to ER via Unassigned with complaints of Broke tooth. ms3 17:25 37-year-old male with no past medical history presents for fracture tooth. Patient ms3 states he was eating and his tooth snapped approximate 30 minutes prior to arrival. Patient states he called his dentist and they were closing and he was told to come to the emergency department for pain control and antibiotics. Patient denies taking medications prior to arrival. Patient states pain is 9/10 described as throbbing.. Historical: - Allergies: 17:25 Ibuprofen; ld1 17:25 Toradol; ld1 - Immunization history:: Adult Immunizations unknown, Client reports having NOT received the Covid vaccine. - Social history:: Smoking status: Patient denies any tobacco usage or history of. Patient/guardian denies using alcohol, street drugs, IV drugs, tobacco products. ROS: 17:25 Constitutional: Negative for fever, and chills. Neck: Negative for injury, pain, and ms3 swelling, Cardiovascular: Negative for chest pain, and palpitations. Respiratory: Negative for shortness of breath, cough, wheezing, and pleuritic chest pain, Abdomen/GI: Negative for abdominal pain, nausea, vomiting, diarrhea, and constipation, Skin: Negative for injury, rash, and discoloration. 17:25 ENT: Positive for dental pain. 17:25 All other systems are negative. Exam: 17:25 Constitutional: This is a well developed, well nourished patient who is awake, alert, ms3 and in no acute distress. 17:25 ENT: Dental exam: dental caries, specifically in the upper right first bicuspid (#5), the patient wears dentures, fractured teeth are noted, specifically the upper right second bicuspid (#4), gum swelling, that is moderate, specifically in the upper right first bicuspid (#5). Vital Signs: 17:23 BP 111 / 81; Pulse 67; Resp 20; Temp 98.2; Pulse Ox 100% on R/A; Weight 63.5 kg; Height ld1 5 ft. 11 in. ; Pain 10/10; 17:23 Body Mass Index 19.53 (63.50 kg, 180.34 cm) ld1 17:23 Pain Scale: Adult ld1 MDM: 17:07 Patient medically screened. ms3 17:25 Differential diagnosis: dental caries, gingivitis, gingivostomatitis. Data reviewed: ms3 vital signs, nurses notes, and as a result, I will discharge patient. Counseling: I had a detailed discussion with the patient and/or guardian regarding: the historical points, exam findings, and any diagnostic results supporting the discharge/admit diagnosis, the need for outpatient follow up, to return to the emergency department if symptoms worsen or persist or if there are any questions or concerns that arise at home. ED course: Discussed physical exam findings and treatment plan with patient. Patient stands agrees plan. Patient to follow-up with his dentist in 2 to 3 days. Return precautions discussed include worsening symptoms, or any other concerns. Administered Medications: No medications were administered Disposition Summary: 02/05/23 17:07 Discharge Ordered Location: Home ms3 Condition: Stable ms3 Diagnosis - Dental caries, unspecified ms3 - Dental fracture ms3 Followup: ms3 - With: Abel Ash DDS - When: 2 - 3 days - Reason: Recheck today's complaints Discharge Instructions: - Discharge Summary Sheet ms3 - Dental Caries, Adult ms3 Forms: - Medication Reconciliation Form ms3 - Thank You Letter ms3 - Antibiotic Education ms3 - Prescription Opioid Use ms3 Prescriptions: - penicillin V potassium 500 mg Oral tablet - take 1 tablet by ORAL route 4 times per day for 7 days; 28 tablet; Refills: 0, ms3 Product Selection Permitted - Ibuprofen 600 mg Oral Tablet - take 1 tablet by ORAL route every 6 hours As needed take with food; 30 tablet; ms3 Refills: 0, Product Selection Permitted - Tramadol 50 mg Oral Tablet - take 1 tablet by ORAL route every 8 hours as needed; 12 tablet; Refills: 0, ms3 Product Selection Permitted Signatures: Иван Vann DO DO ms3 Wendy Vann RN RN ld1 Corrections: (The following items were deleted from the chart) 17: 17:25 PMHx: hemorrhoids; ld1 ld1 17:25 17:25 PMHx: irregular heart beat; ld1 ld1 17:25 17:25 PMHx: collpse lung; ld1 ld1
--- NOTE | 2023-02-05 17:35 | ER ---
Nurse's Notes [facility] Name: Zohaib Talamantes Age: 37 yrs Sex: Male : 1985 Arrival Date: 02/05/2023 Time: 16:55 Bed IW4 Private MD: Diagnosis: Dental caries, unspecified;Dental fracture Presentation: 02/05 17:23 Chief complaint: Patient states: Pt reports broken tooth while eating, 10/10 pain at ld1 this time. Coronavirus screen: Vaccine status: Patient reports being unvaccinated. At this time, the client does not indicate any symptoms associated with coronavirus-19. Ebola Screen: No symptoms or risks identified at this time. Initial Sepsis Screen: Does the patient meet any 2 criteria? No. Patient's initial sepsis screen is negative. Does the patient have a suspected source of infection? No. Patient's initial sepsis screen is negative. Risk Assessment: Do you want to hurt yourself or someone else? Patient reports no desire to harm self or others. Onset of symptoms was February 05, 2023. 17:23 Method Of Arrival: Ambulatory ld1 17:23 Acuity: TOREY 5 ld1 Triage Assessment: 17:25 General: Appears uncomfortable, Behavior is cooperative. Pain: Complains of pain in ld1 lower right central incisor, lower right lateral incisor, lower right cuspid, lower right first bicuspid, lower right second bicuspid, lower right first molar, lower right second molar and lower right third molar Pain currently is 10 out of 10 on a pain scale. Is continuous. EENT: Oral mucosa is moist. Reports pain in right jaw Pain is 10 out of 10 on a pain scale. Neuro: Level of Consciousness is alert, obeys commands, Oriented to person, place, time, situation, Appropriate for age Speech is normal. Cardiovascular: Patient's skin is warm and dry. Respiratory: Airway is patent Respiratory effort is even, unlabored. Historical: - Allergies: 17:25 Ibuprofen; ld1 17:25 Toradol; ld1 - Immunization history:: Adult Immunizations unknown, Client reports having NOT received the Covid vaccine. - Social history:: Smoking status: Patient denies any tobacco usage or history of. Patient/guardian denies using alcohol, street drugs, IV drugs, tobacco products. Screenin:28 [facility] ED Fall Risk Assessment (Adult) History of falling in the last 3 months, ld1 including since admission No falls in past 3 months (0 pts) Confusion or Disorientation No (0 pts) Intoxicated or Sedated No (0 pts) Impaired Gait No (0 pts) Mobility Assist Device Used No (0 pt) Altered Elimination No (0 pt) Score/Fall Risk Level 0 - 2 = Low Risk Maintained a safe environment, Hourly rounding (assess needs \T\ fall precautionary measures) done. Abuse screen: Denies threats or abuse. Nutritional screening: No deficits noted. Difficulty chewing/swallowing? Yes. Tuberculosis screening: No symptoms or risk factors identified. Assessment: 17:28 Reassessment: See triage assessment. ld1 Vital Signs: 17:23 BP 111 / 81; Pulse 67; Resp 20; Temp 98.2; Pulse Ox 100% on R/A; Weight 63.5 kg; Height ld1 5 ft. 11 in. ; Pain 10/10; 17:23 Body Mass Index 19.53 (63.50 kg, 180.34 cm) ld1 17:23 Pain Scale: Adult ld1 ED Course: 16:59 Patient arrived in ED. mr 17:00 Иван Vann DO is Attending Physician. ms3 17:05 Abel Ash DDS is Referral Physician. ms3 17:25 Triage completed. ld1 17:25 Arm band placed on right wrist. ld1 17:28 Wendy Vann, RN is Primary Nurse. ld1 17:28 Patient has correct armband on for positive identification. ld1 17:28 No provider procedures requiring assistance completed. Patient did not have IV access ld1 during this emergency room visit. Administered Medications: No medications were administered Medication: 17:28 VIS not applicable for this client. ld1 Outcome: 17:07 Discharge ordered by . ms3 17:28 Discharged to home ambulatory. ld1 17:28 Condition: good 17:28 Discharge instructions given to patient, Instructed on discharge instructions, follow up and referral plans. Demonstrated understanding of instructions, follow-up care, medications, Prescriptions given X 1. 17:35 Patient left the ED. ld1 Signatures: Nicolette Lopez mr Иван Vann DO DO ms3 Wendy Vann, RN RN ld1 Corrections: (The following items were deleted from the chart) 17:25 17:25 PMHx: hemorrhoids; ld1 ld1 17:25 17:25 PMHx: irregular heart beat; ld1 ld1 17:25 17:25 PMHx: collpse lung; ld1 ld1
[2023-02-05 18:10] VITALS: BP 111/81; TEMP 98.2; O2SAT 100
== END 2023-02-05 17:35 | disposition home or self-care (01) ==
LOC: ER 16:55
DX: S02.5XXA Fracture of tooth (traumatic), initial encounter for closed fracture (principal); K02.9 Dental caries, unspecified; Z88.5 Allergy status to narcotic agent; Z88.6 Allergy status to analgesic agent
CPT/HCPCS: 99283